=== PATIENT | female | born 1935 | race Caucasian/White ===

== ENCOUNTER 2016-11-04 12:55 | Inpatient (IN) | payer MEDICARE ==
--- NOTE | 2016-11-04 14:50 | RAD ---
INDICATION: Leg weakness and heavy feeling. COMPARISON: There are no prior studies available for comparison. TECHNIQUE: Contiguous axial sections of the brain were obtained from the skull base to the vertex without contrast. FINDINGS: The ventricles, cisterns and sulci are enlarged consistent with age-related atrophy. There are small areas of decreased density in the subcortical and periventricular white matter suggestive of mild chronic small vessel ischemic changes. There is no evidence for hemorrhage. There is an air-fluid level within the left maxillary sinus suggestive of sinusitis. There is mild mucosal thickening within the ethmoid air cells. The visualized portion of the paranasal sinuses and mastoid air cells otherwise appear clear. IMPRESSION: 1. NO EVIDENCE FOR GROSS ACUTE INFARCT, MASS EFFECT OR HEMORRHAGE. 2. AIR-FLUID LEVEL WITHIN THE LEFT MAXILLARY SINUS SUGGESTIVE OF SINUSITIS.
[2016-11-04] MEDS ORDERED: NS 0.9% 1000 ML* 1,000 ML IV ONE (15:09)
[2016-11-04 15:27] LABS: Hematocrit 33 % (35-47); Hemoglobin 10.3 g/dl (12.0-16.0); Mean Corpuscular HGB Conc 32 g/dl (31-36); Mean Corpuscular Hemoglobin 22 pg (27-31); Mean Corpuscular Volume 69 fL (80-97); Mean Platelet Volume 7 um3 (7.4-10.4); Red Blood Count 4.72 10^6/ul (4.0-5.4); Red Cell Distribution Width 17 % (10.5-15); White Blood Count 6.7 10^3/ul (3.5-10.8)
[2016-11-04 15:33] LABS: Comments Flag Yes
[2016-11-04 15:35] LABS: Add Diff/Slide Review? Slide Review Added
[2016-11-04 15:50] LABS: Albumin 2.9 g/dL (3.2-5.2); BUN/Creatinine Ratio 22.7 (8-20); Calcium 8.6 mg/dL (8.6-10.3); EGFR African American 176.9 (>60); EGFR Non-African American 137.6 (>60); Globulin 4.3 g/dL (2-4); Magnesium 1.8 mg/dL (1.9-2.7); Total Bilirubin 0.2 mg/dL (0.2-1.0); Total Protein 7.2 g/dL (6.4-8.9)
[2016-11-04 15:56] LABS: Potassium 3.8 mmol/L (3.5-5.0); Troponin I 0.04 ng/mL (<0.04)
[2016-11-04] MEDS ORDERED: Magnesium Sulfate 2 GM IV* 2 GM/50 ML BAG IVPB ONE (16:08)
[2016-11-04 16:29] LABS: TSH (Thyroid Stimulating Horm) 1.63 mcIU/mL (0.34-5.60)
--- NOTE | 2016-11-04 17:30 | ED ---
I, Oh,Giacomo, scribed for Za Clark MD on 11/04/16 at 1508 . Neurological HPI - HPI Summary HPI Summary: This 81 y/o female presents to ED for bilat leg weakness and trouble ambulating. pt was seen at urgent care for bilat edema recently, and expresses concerns over BLE edema today. She also c/o bilat feet pain that makes ambulating difficult for her. She denies any fall. Positive cough that is controlled with cough drops. Pt does not have any primary care doctor, and is currently denying any PMHx. Pt lives at [facility]. - History of Current Complaint Chief Complaint: EDWeakness Stated Complaint: WEEKNESS Time Seen by Provider: 11/04/16 14:17 Hx Obtained From: Patient Onset/Duration: Sudden Onset Timing: Constant Pain Intensity: 0 Pain Scale Used: 0-10 Numeric Aggravating: Nothing Alleviating: Nothing - Allergy/Home Medications Allergies/Adverse Reactions: Allergies Allergy/AdvReac Type Severity Reaction Status Date / Time No Known Allergies Allergy Verified 11/04/16 14:40 PMH/Surg Hx/FS Hx/Imm Hx Previously Healthy: Yes - Pt denies any PMhx Infectious Disease History: No Infectious Disease History: Denies: Traveled Outside the [place] in Last 30 Days - Family History Known Family History: Negative: Cardiac Disease, Hypertension, Diabetes - Social History Alcohol Use: None Substance Use Type: Reports: None Smoking Status (MU): Light Every Day Tobacco Smoker Review of Systems Negative: Fever Positive: Edema - BLE edema, Other - bilat feet pain Positive: Weakness - BLE weakness All Other Systems Reviewed And Are Negative: Yes Physical Exam Triage Information Reviewed: Yes Vital Signs On Initial Exam: Initial Vitals Temp Pulse Resp BP Pulse Ox 98.9 F 94 16 139/50 94 11/04/16 13:00 11/04/16 13:00 11/04/16 13:00 11/04/16 13:00 11/04/16 13:00 Vital Signs Reviewed: Yes Appearance: Positive: Well-Appearing, No Pain Distress Skin: Positive: Warm, Skin Color Reflects Adequate Perfusion, Dry Head/Face: Positive: Normal Head/Face Inspection Eyes: Positive: EOMI, APRIL Neck: Positive: Supple, Nontender Respiratory/Lung Sounds: Positive: Clear to Auscultation, Breath Sounds Present Cardiovascular: Positive: RRR, Pulses are Symmetrical in both Upper and Lower Extremities. Negative: Murmur, Rub, Leg Edema Left, Leg Edema Right, Other - gallops Musculoskeletal: Positive: Strength/ROM Intact - strength BLE intact Neurological: Positive: Sensory/Motor Intact, Alert, Oriented to Person Place, Time, CN Intact II-III. Negative: Focal Deficit @ - bilat lower extremities strength intact Psychiatric: Positive: Affect/Mood Appropriate AVPU Assessment: Alert - [place] Coma Scale Coma Scale Total: 15 Diagnostics - Vital Signs Vital Signs Temp Pulse Resp BP Pulse Ox 11/04/16 13:00 98.9 F 94 16 139/50 94 - Laboratory Lab Results: Lab Results 11/04/16 11/04/16 11/04/16 Range/Units 15:15 15:15 15:15 WBC 6.7 (3.5-10.8) 10^3/ul RBC 4.72 (4.0-5.4) 10^6/ul Hgb 10.3 L (12.0-16.0) g/dl Hct 33 L (35-47) % MCV 69 L (80-97) fL MCH 22 L (27-31) pg MCHC 32 (31-36) g/dl RDW 17 H (10.5-15) % Plt Count 571 H (150-450) 10^3/ul MPV 7 L (7.4-10.4) um3 Neut % (Auto) 76.8 (38-83) % Lymph % (Auto) 11.8 L (25-47) % [place] % (Auto) 10.9 H (1-9) % Eos % (Auto) 0.2 (0-6) % Baso % (Auto) 0.3 (0-2) % Absolute Neuts (auto) 5.2 (1.5-7.7) 10^3/ul Absolute Lymphs (auto) 0.8 L (1.0-4.8) 10^3/ul Absolute Monos (auto) 0.7 (0-0.8) 10^3/ul Absolute Eos (auto) 0 (0-0.6) 10^3/ul Absolute Basos (auto) 0 (0-0.2) 10^3/ul Absolute Nucleated RBC 0 10^3/ul Nucleated RBC % 0.1 Sodium 134 (133-145) mmol/L Potassium 3.8 (3.5-5.0) mmol/L Chloride 95 L (101-111) mmol/L Carbon Dioxide 32 (22-32) mmol/L Anion Gap 7 (2-11) mmol/L BUN 10 (6-24) mg/dL Creatinine 0.44 L (0.51-0.95) mg/dL Est GFR ( Amer) 176.9 (>60) Est GFR (Non-Af Amer) 137.6 (>60) BUN/Creatinine Ratio 22.7 H (8-20) Glucose 100 (70-100) mg/dL Lactic Acid 1.1 (0.5-2.0) mmol/L Calcium 8.6 (8.6-10.3) mg/dL Magnesium 1.8 L (1.9-2.7) mg/dL Total Bilirubin 0.20 (0.2-1.0) mg/dL AST 17 (13-39) U/L ALT 6 L (7-52) U/L Alkaline Phosphatase 116 H (34-104) U/L Troponin I 0.04 H* (<0.04) ng/mL Total Protein 7.2 (6.4-8.9) g/dL Albumin 2.9 L (3.2-5.2) g/dL Globulin 4.3 H (2-4) g/dL Albumin/Globulin Ratio 0.7 L (1-3) TSH 1.63 (0.34-5.60) mcIU/mL Result Diagrams: 11/04/16 15:15 11/04/16 15:15 Lab Statement: Any lab studies that have been ordered have been reviewed, and results considered in the medical decision making process. - CT Brain CT Interpretation: No Acute Changes - 1. NO EVIDENCE FOR GROSS ACUTE INFARCT, MASS EFFECT OR HEMORRHAGE. 2. AIR-FLUID LEVEL WITHIN THE LEFT MAXILLARY SINUS SUGGESTIVE OF SINUSITIS. CT Interpretation Completed By: Radiologist - EKG 1 Cardiac Rate: NL EKG Rhythm: Sinus Rhythm EKG Interpretation: LVH EKG Comparison: No Significant Change - 09/02/2006 Re-Evaluation - Re-Evaluation First Eval Re-Evaluation Time: 16:20 Comment: MD in room to discuss plan of care involving possible admission for further cardiac workup. Course/Dx - Course Course Of Treatment: 81 yo female with complaint of weakness and heavy legs, her neuro exam is normal. Pt has good range of motion in her lower extremities , her trop is in the indeterminate range and pt will be brought in as an obv. The case has been discussed with Dr. Walters. Of note a urine is pending - Diagnoses Provider Diagnoses: Weakness - Physician Notifications Discussed Care of Patient With: Dr. Walters (Hospitalist) at 1618 PM Discharge - Discharge Plan Condition: Stable Disposition: ADMITTED TO [facility] The documentation as recorded by the Prabhjot rivers Soohyun accurately reflects the service I personally performed and the decisions made by me, Za Clark MD.
[2016-11-04 18:19] LABS: Urine Bacteria Absent (Absent); Urine Bilirubin Negative (Negative); Urine Glucose Negative (Negative); Urine Nitrite Negative (Negative)
[2016-11-04] MEDS: Heparin VIAL(*) 5000 UNITS/ML VIAL (FIVE THOUSAND) SUBCUT SCH (21:44)
[2016-11-04] MEDS: Ondansetron INJ* 2 MG/ML VIAL IV PRN (21:47)
--- NOTE | 2016-11-04 23:50 | HP ---
HISTORY AND PHYSICAL: DATE OF ADMISSION: 11/04/16 PRIMARY CARE PROVIDER: None. ATTENDING PHYSICIAN WHILE IN THE HOSPITAL: Lizzie Walters DO* (report dictated by Zaida Palomino NP) CHIEF COMPLAINT: Her legs feel heavy. HISTORY OF PRESENT ILLNESS: Ms. Oliver is an 81-year-old female patient who does not really see a physician. She is a smoker. Her only history that she is able to give me is that she has had a history of pneumonia. She specifically denied any history of hypertension, hyperlipidemia, or diabetes. No cancer that she is aware of and denies having any history of stroke or heart attack. She comes in today stating that over the last couple of weeks, her legs have felt heavy. She has been feeling weak, progressively worsening, more and more weak over the last couple of weeks. She has had tingling and funny feelings in bilateral lower extremities. Went to Urgent Care last week and they diagnosed her with edema. She was discharged from there, but she came back today because she has been having difficulty with this weakness and has feeling like her legs feel heavy. She states that she has not had any fevers or chills. She has been incontinent of urine, but this is not new for her. She denied having any back pain. There has been no chest pain. No shortness of breath. No vomiting. No diarrhea. No abdominal pain. No cough. No fevers. She said otherwise she just feels like her legs are weak. She came to the ED because of the weakness, there was concern and we were asked to evaluate for admission. She denies having again any back pain or any pain shooting down her legs. She was evaluated in the ED because of the weakness and the fact that there was concern for her safety at home and the fact that she was having difficulty with ambulation due to the weakness. We were asked to evaluate for admission. PAST MEDICAL HISTORY: Significant for she has had pneumonia in the past. PAST SURGICAL HISTORY: She has had teeth extractions. HOME MEDICATIONS: Include aspirin 81 mg daily. ALLERGIES TO MEDICATIONS: Include no known drug allergies. FAMILY HISTORY: Reviewed and noncontributory. Says there was no history of MIs , cancers, or strokes in her parents. SOCIAL HISTORY: She is a smoker. She smokes about half a pack a day. She has been smoking for about 50 years. She does not drink alcohol. She lives alone. Surrogate decision maker is not appointed. She does have 1 child. REVIEW OF SYSTEMS: There is no documented fever. She denied having any significant weight change. There was no double vision. There is no ear discharge. No rhinorrhea. No sore throat. No thyroid enlargement. Denied having any chest pain. There is no orthopnea. There is no nocturnal dyspnea. There is no abdominal pain. No nausea. No vomiting. No dysuria. No frequency. No seizure. No loss of consciousness. No pruritus. No skin ulcerations. Review of 14 systems completed, all others negative. PHYSICAL EXAMINATION GENERAL: At this time, Mr. Oliver is an 81-year-old female patient. She appears to be cachectic. She does not appear to be in any acute distress. She is sitting in the ER stretcher. VITAL SIGNS: Reveal a blood pressure of 149/57, pulse 89, respirations 20, O2 sat 95%, and temperature 99.9. HEENT: Head is atraumatic and normocephalic. Eyes: EOMs are intact. Sclerae were anicteric and not pale. NECK: Supple. Throat: Oral mucosa appears to be moist. No oropharyngeal erythema. LUNGS: Clear to auscultation bilaterally. No wheezes, rales, or rhonchi. HEART: Sounds S1, S2. Regular rate and rhythm. No murmurs, rubs, or gallops. ABDOMEN: Soft, flat, and nontender. Bowel sounds present. EXTREMITIES: Pulses were 2+ throughout. She is actually able to move all 4 extremities. She had 5/5 strength in the lower extremities on exam. NEUROLOGIC: She is awake, alert, and oriented x3. Speech clear. Tongue midline. Associate Genetics Professor are equal. There were no gross focal deficits. SKIN: Intact. DIAGNOSTIC STUDIES/LAB DATA: Labs today revealed WBC of 6.7, RBC of 4.77, hemoglobin of 10.3, hematocrit of 33, and platelet count of 571. The sodium was 134, potassium was 3.8, chloride 95, bicarb 32, BUN 10, creatinine of 0.44, glucose 100, lactic 1.1, calcium 8.6, and mag 1.8. Total bilirubin 0.2, AST 17 , ALT 6, and alk phos 116. Troponin 0.04. Albumin 2.9. She did have a brain CT obtained today, which revealed no evidence of gross acute infarct, mass effect, or hemorrhage and air fluid level within the left maxillary sinus suggestive of sinusitis. She had an EKG obtained today, which revealed normal sinus rhythm, rate of 96, and no ST elevations or T-wave inversions were noted. Old medical records were reviewed. ASSESSMENT AND PLAN: Ms. Oliver is an 81-year-old female patient coming in to the ER today with complaints of weakness. On evaluation, found to have an indeterminate troponin. In addition to this unclear etiology for the weakness, we were asked to evaluate for admission. She will be admitted under observation status for: 1. Weakness: Etiology is unclear. At this point, I am going to go ahead and get urine. We will check a flu swab as well to make sure there is any underlying occult infection. I will order PT evaluation on the patient and we will continue to follow. Question as to weakness and she was describing more of a tingling in her legs, but this is related to neuropathy. Certainly, if her acute workup is negative, we can get a primary for her to follow in the outpatient setting. 2. Indeterminate troponin: She is not having any cardiac symptoms whatsoever. EKG appears to be stable. I will cycle her troponins. If they are elevated up , we will get an echo and also get a Cardiology consult and I will repeat the EKG in the morning. 3. Code status: She wished to be a DNR. 4. DVT prophylaxis: She is high risk. She will be placed on heparin subcu. 5. Fluids, electrolytes, and nutrition: She can have a regular diet. TIME SPENT: Time spent on the admission was 60 minutes; greater than half the time was spent [id number] with the patient obtaining my history and physical, the other half time is spent going over the plan of care with the patient and implementing plan of care. I discussed the plan of care with my attending, Dr. Walters. [place] [id number]/[facility] #: [id number] JOANNA
[2016-11-05] MEDS: Oseltamivir CAP* 75 MG PO SCH ×3 (00:11→20:37)
[2016-11-05] MEDS: Acetaminophen TAB* 325 MG PO PRN ×2 (00:19→09:13)
[2016-11-05] MEDS: Heparin VIAL(*) 5000 UNITS/ML VIAL (FIVE THOUSAND) SUBCUT SCH ×3 (06:01→20:37)
[2016-11-05 07:17] LABS: Hematocrit 29 % (35-47); Hemoglobin 9.5 g/dl (12.0-16.0); Mean Corpuscular HGB Conc 32 g/dl (31-36); Mean Corpuscular Hemoglobin 22 pg (27-31); Mean Corpuscular Volume 68 fL (80-97); Mean Platelet Volume 7 um3 (7.4-10.4); Red Blood Count 4.32 10^6/ul (4.0-5.4); Red Cell Distribution Width 17 % (10.5-15); White Blood Count 5.2 10^3/ul (3.5-10.8)
[2016-11-05 07:22] LABS: Add Diff/Slide Review? Slide Review Added; Comments Flag Yes
[2016-11-05 07:34] LABS: BUN/Creatinine Ratio 16.7 (8-20); Calcium 8.2 mg/dL (8.6-10.3); EGFR African American 123.7 (>60); EGFR Non-African American 96.2 (>60); Potassium 3.5 mmol/L (3.5-5.0)
[2016-11-05 08:20] LABS: Hypochromasia 2+; Microcytosis 3+
[2016-11-05 08:23] LABS: Troponin I 0.05 ng/mL (<0.04)
[2016-11-05] MEDS: Aspirin EC Low Dose* 81 MG TAB.EC PO SCH (09:13)
[2016-11-05] MEDS: Ondansetron INJ* 2 MG/ML VIAL IV PRN ×2 (09:36→17:13)
[2016-11-05] MEDS ORDERED: Al Hydrox/Mg Hydrox/Simet LIQ* 30 ML UDC ONE (13:57)
[2016-11-05] MEDS ORDERED: Al Hydrox/Mg Hydrox/Simet LIQ* 30 ML UDC PO ONE (14:00)
[2016-11-05] MEDS: Morphine INJ* 2 MG/ML 1 ML SYRINGE IV PRN (20:38)
--- NOTE | 2016-11-05 22:47 | PN ---
Subjective Date of Service: 11/05/16 Interval History: Patient feeling weak still but somewhat better than yesterday. Objective Active Medications: Acetaminophen (Tylenol Tab*) 650 mg PO Q4H PRN PRN Reason: FEVER/PAIN Last Admin: 11/05/16 09:13 Dose: 650 mg Aspirin (Aspirin Ec Low Dose*) 81 mg PO DAILY [facility] Last Admin: 11/05/16 09:13 Dose: 81 mg Heparin Sodium (Porcine) (Heparin Vial(*)) 5,000 units SUBCUT Q8HR [facility] Last Admin: 11/05/16 20:37 Dose: 5,000 units Morphine Sulfate (Morphine Inj (Syringe)*) 2 mg IV Q4H PRN PRN Reason: PAIN - MILD Last Admin: 11/05/16 20:38 Dose: 2 mg Ondansetron HCl (Zofran Inj*) 4 mg IV Q6H PRN PRN Reason: NAUSEA Last Admin: 11/05/16 17:13 Dose: 4 mg Oseltamivir Phosphate (Tamiflu Cap*) 75 mg PO BID [facility] Stop: 11/09/16 09:01 Last Admin: 11/05/16 20:37 Dose: 75 mg Vital Signs 11/05/16 11/05/16 11/05/16 19:54 20:00 20:38 Temperature 99.7 F Pulse Rate 76 Respiratory 18 18 Rate Blood Pressure 151/55 (mmHg) O2 Sat by Pulse 91 Oximetry 11/05/16 21:38 Temperature Pulse Rate Respiratory 18 Rate Blood Pressure (mmHg) O2 Sat by Pulse Oximetry Oxygen Devices in Use Now: None Appearance: Elderly woman lying in bed in [facility] Eyes: No Scleral Icterus Ears/Nose/Mouth/Throat: Clear Oropharnyx Neck: No Thyroid Enlargement, Masses Respiratory: Clear to Auscultation Cardiovascular: NL Sounds; No Murmurs; No JVD Abdominal: NL Sounds; No Tenderness; No Distention, No Hepatosplenomegaly Lymphatic: No Cervical Adenopathy Extremities: No Edema Skin: No Rash or Ulcers Neurological: Alert and Oriented x 3 Result Diagrams: 11/05/16 07:02 11/05/16 07:02 Additional Lab and Data: Lab Results 11/04/16 11/04/16 11/04/16 Range/Units 15:15 15:15 15:15 WBC 6.7 (3.5-10.8) 10^3/ul RBC 4.72 (4.0-5.4) 10^6/ul Hgb 10.3 L (12.0-16.0) g/dl Hct 33 L (35-47) % MCV 69 L (80-97) fL MCH 22 L (27-31) pg MCHC 32 (31-36) g/dl RDW 17 H (10.5-15) % Plt Count 571 H (150-450) 10^3/ul MPV 7 L (7.4-10.4) um3 Neut % (Auto) 76.8 (38-83) % Lymph % (Auto) 11.8 L (25-47) % [place] % (Auto) 10.9 H (1-9) % Eos % (Auto) 0.2 (0-6) % Baso % (Auto) 0.3 (0-2) % Absolute Neuts (auto) 5.2 (1.5-7.7) 10^3/ul Absolute Lymphs (auto) 0.8 L (1.0-4.8) 10^3/ul Absolute Monos (auto) 0.7 (0-0.8) 10^3/ul Absolute Eos (auto) 0 (0-0.6) 10^3/ul Absolute Basos (auto) 0 (0-0.2) 10^3/ul Absolute Nucleated RBC 0 10^3/ul Nucleated RBC % 0.1 Sodium 134 (133-145) mmol/L Potassium 3.8 (3.5-5.0) mmol/L Chloride 95 L (101-111) mmol/L Carbon Dioxide 32 (22-32) mmol/L Anion Gap 7 (2-11) mmol/L BUN 10 (6-24) mg/dL Creatinine 0.44 L (0.51-0.95) mg/dL Est GFR ( Amer) 176.9 (>60) Est GFR (Non-Af Amer) 137.6 (>60) BUN/Creatinine Ratio 22.7 H (8-20) Glucose 100 (70-100) mg/dL Lactic Acid 1.1 (0.5-2.0) mmol/L Calcium 8.6 (8.6-10.3) mg/dL Magnesium 1.8 L (1.9-2.7) mg/dL Total Bilirubin 0.20 (0.2-1.0) mg/dL AST 17 (13-39) U/L ALT 6 L (7-52) U/L Alkaline Phosphatase 116 H (34-104) U/L Troponin I 0.04 H* (<0.04) ng/mL Total Protein 7.2 (6.4-8.9) g/dL Albumin 2.9 L (3.2-5.2) g/dL Globulin 4.3 H (2-4) g/dL Albumin/Globulin Ratio 0.7 L (1-3) TSH 1.63 (0.34-5.60) mcIU/mL Assess/Plan/Problems-Billing Assessment: 81 year old woman admitted with weakness and found to have Influenza B. - Patient Problems (1) Influenza B Current Visit: Yes Status: Acute Code(s): J10.1 - FLU DUE TO OTH IDENT INFLUENZA VIRUS W OTH RESP MANIFEST SNOMED Code(s): 60370590 Comment: Likely source of her weakness. Continue Tamiflu. Encourage ambulation. (2) Troponin level elevated Current Visit: Yes Status: Acute Code(s): R74.8 - ABNORMAL LEVELS OF OTHER SERUM ENZYMES SNOMED Code(s): 905592004 Comment: No significant change. Unlikely of any significance. (3) DVT prophylaxis Current Visit: Yes Status: Acute Code(s): LRB3916 - SNOMED Code(s): 915064661 Comment: heparin sub q (4) Full code status Current Visit: Yes Status: Acute Code(s): Z78.9 - OTHER SPECIFIED HEALTH STATUS SNOMED Code(s): 312811542
[2016-11-06] MEDS: Morphine INJ* 2 MG/ML 1 ML SYRINGE IV PRN (02:52)
[2016-11-06] MEDS ORDERED: Potassium Chlor TAB* 20 MEQ TAB.ER PO ONE (03:30)
[2016-11-06] MEDS: Acetaminophen TAB* 325 MG PO PRN ×3 (03:39→23:29)
[2016-11-06] MEDS ORDERED: Magnesium Sulfate 2 GM IV* 2 GM/50 ML BAG IVPB ONE (04:00)
[2016-11-06] MEDS: Heparin VIAL(*) 5000 UNITS/ML VIAL (FIVE THOUSAND) SUBCUT SCH ×3 (06:05→23:29)
[2016-11-06] MEDS: Ondansetron INJ* 2 MG/ML VIAL IV PRN ×2 (06:52→12:03)
[2016-11-06 07:38] LABS: BUN/Creatinine Ratio 33.3 (8-20); Calcium 8.3 mg/dL (8.6-10.3); EGFR African American 203.4 (>60); EGFR Non-African American 158.1 (>60); Magnesium 2.5 mg/dL (1.9-2.7); Potassium 3.9 mmol/L (3.5-5.0)
[2016-11-06] MEDS: Aspirin EC Low Dose* 81 MG TAB.EC PO SCH (10:53)
[2016-11-06] MEDS: Oseltamivir CAP* 75 MG PO SCH ×2 (10:53→19:46)
--- NOTE | 2016-11-06 11:23 | RAD ---
HISTORY: Weakness COMPARISONS: September 16, 2006 VIEWS:1: Single frontal portable view of the chest at 11:00 AM FINDINGS: LINES AND TUBES: None. CARDIOMEDIASTINAL SILHOUETTE: The cardiomediastinal silhouette is normal for portable technique. PLEURA: There is persistent right apical pleural thickening, stable LUNG PARENCHYMA: There is hyper inflation with diffuse coarse reticular pattern of opacification. ABDOMEN: The upper abdomen is clear. There is no subphrenic gas. 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 CHRONIC APPEARING INTERSTITIAL OPACIFICATION.
--- NOTE | 2016-11-06 11:39 | ECHO ---
Patient: BLANCA MILLS I [facility] Rec#: [id number] : 1935 Date: 11/06/2016 Age: 81y Height: 167.64 cm / 66.0 in Weight: 45.81 kg / 101.0 lbs Sex: F BSA: 1.5 Room#: 447 Admit Date#: 11/05/2016 Type: Inpatient Referring: Yazan Kulkarni MD Reading: Beatriz Gray MD Branch Account Executive: Uma Fernández,RDCS,RDMS CC: Vince Fiore MD Transthoracic Echocardiogram Indication: Murmur BP: 148/42 HR: 62 Rhythm: NSR Indications Cardiac Murmurs Findings History: Smoker, pneumonia Technical Comments: The study quality is fair. The study is technically limited due to poor parasternal windows. Left Ventricle: The left ventricular chamber size is normal. Mild to moderate concentric left ventricular hypertrophy is observed. Global left ventricular wall motion and contractility are within normal limits. The estimated ejection fraction is 55-60%. Abnormal left ventricular diastolic filling is observed, consistent with impaired relaxation. Left Atrium: The left atrium is moderately dilated. Right Ventricle: The right ventricular chamber size and systolic function are within normal limits. Right Atrium: The right atrial cavity size is normal. Aortic Valve: The aortic valve is trileaflet. The aortic valve leaflets are mildly thickened. There is mild aortic regurgitation. There is mild aortic stenosis. The aortic valve area, by peak velocities, is calculated at 1.6 cm2. Mitral Valve: There is mitral annular calcification. The mitral valve leaflets are mildly thickened. There is trace to mild mitral regurgitation. There is mild mitral stenosis. Tricuspid Valve: The tricuspid valve leaflets are normal. There is trace tricuspid regurgitation. Unable to estimate the right ventricular systolic pressure. Pulmonic Valve: The pulmonic valve structure is not well visualized. Pericardium: There is no significant pericardial effusion. Aorta: The ascending aorta is not well visualized. There is no dilatation of the aortic arch. The aortic root is normal in size. Pulmonary Artery: The main pulmonary artery is not well visualized. Venous: The inferior vena cava appears normal in size. There is an approximate 50% respiratory change in the inferior vena cava dimension. Conclusions Mild to moderate concentric left ventricular hypertrophy with normal wall motion and contractility. The estimated ejection fraction is 55-60%. Abnormal left ventricular diastolic filling is observed, consistent with impaired relaxation. The right ventricular chamber size and systolic function are within normal limits. There is mild aortic regurgitation. There is mild aortic stenosis: mean gradient 9 mmHg, JOSE LUIS 1.7 cm2. The mitral valve leaflets are mildly thickened. There is trace to mild mitral regurgitation. There is mild mitral stenosis. Unable to estimate the right ventricular systolic pressure. No prior echo to compare. Measurements Name Value Normal Range RVDdMajor (2D) 2 cm (2.2 - 4.4) RAd ISD 4CH 4.8 cm (3.4 - 4.9) RA (A4C)W 3.6 cm (2.9 - 4.6) IVSd (2D) 1.4 cm (0.6 - 1) LVPWd (2D) 1.3 cm (0.6 - 1) LVIDd (2D) 3.7 cm (3.6 - 5.4) LVIDs (2D) 2.4 cm - LV FS (2D) 35 % (25 - 45) Aortic Annulus 2 cm (1.4 - 2.6) Ao root diameter (2D) 3.3 cm (2.1 - 3.5) Aortic arch 2.6 cm (1.8 - 3.4) LA dimension (AP) 2D 4.2 cm (2.3 - 3.8) LAd ISD 4CH 5.1 cm (2.9 - 5.3) LA ISD 4CH W 4.9 cm (2.5 - 4.5) Name Value Normal Range LA ESV SP 4CH (A/L) 72.72 ml - LA ESV SP 2CH (A/L) 62.66 ml - LA ESV BP (A/L) 69.72 ml - LA ESV BP (A/L) index 46.5 ml/m2 - LA ESV SP 4CH (MOD) 66.94 ml - LA ESV SP 2CH (MOD) 58.76 ml - Name Value Normal Range MV E-wave Vmax 1 m/sec - MV deceleration time 264 msec - MV A-wave Vmax 1.3 m/sec - MV E:A ratio 0.8 ratio - P. vein S-wave Vmax 0.8 m/sec - P. vein D-wave Vmax 0.5 m/sec - P. vein A-wave duration 118 msec - LV septal e' Vmax 0.05 m/sec - LV lateral e' Vmax 0.07 m/sec - LV E:e' septal ratio 20 ratio - LV E:e' lateral ratio 14 ratio - Name Value Normal Range AV Vmax 2 m/sec - AV VTI 42.4 cm - AV peak gradient 16 mmHg - AV mean gradient 8.7 mmHg - LVOT diameter 2 cm - LVOT Vmax 1 m/sec - LVOT VTI 20.8 cm - LVOT peak gradient 4 mmHg - LVOT mean gradient 2 mmHg - DOI (VTI) 0.5 ratio - JOSE LUIS (continuity Vmax) 1.6 cm2 - JOSE LUIS (continuity VTI) 1.5 cm2 - AR PHT 462 msec - AR peak gradient 56.94 mmHg - ARVIND Vmax 0.6 m/sec - Name Value Normal Range MV Vmax 1.4 m/sec - MV VTI 43.3 cm - MV peak gradient 8 mmHg - MV mean gradient 2.8 mmHg - MV PHT 90 msec - MVA (PHT) 2.4 cm2 - MVA (continuity VTI) 1.4 cm2 - Name Value Normal Range TR Vmax 2.8 m/sec - TR peak gradient 31 mmHg - RAP 3 mmHg - RVSP 34 mmHg - IVC diameter 2 cm -
[2016-11-06] MEDS ORDERED: Ondansetron INJ* 2 MG/ML VIAL IV PRN (11:49)
[2016-11-06] MEDS: PROCHLORPERAZINE INJ 5 MG/ML 2 ML VIAL IV PRN ×2 (13:57→19:46)
--- NOTE | 2016-11-06 18:36 | PN ---
Subjective Date of Service: 11/06/16 Interval History: Patient feeling some nausea now. No other complaints. Objective Active Medications: Acetaminophen (Tylenol Tab*) 650 mg PO Q4H PRN PRN Reason: FEVER/PAIN Last Admin: 11/06/16 12:04 Dose: 650 mg Aspirin (Aspirin Ec Low Dose*) 81 mg PO DAILY [facility] Last Admin: 11/06/16 10:53 Dose: Not Given Heparin Sodium (Porcine) (Heparin Vial(*)) 5,000 units SUBCUT Q8HR [facility] Last Admin: 11/06/16 13:56 Dose: 5,000 units Morphine Sulfate (Morphine Inj (Syringe)*) 2 mg IV Q4H PRN PRN Reason: PAIN - MILD Last Admin: 11/06/16 02:52 Dose: 2 mg Ondansetron HCl (Zofran Inj*) 4 mg IV Q4H PRN PRN Reason: NAUSEA Oseltamivir Phosphate (Tamiflu Cap*) 75 mg PO BID [facility] Stop: 11/09/16 09:01 Last Admin: 11/06/16 10:53 Dose: Not Given Prochlorperazine Edisylate (Compazine Inj*) 5 mg IV Q6H PRN PRN Reason: NAUSEA/VOMITING Last Admin: 11/06/16 13:57 Dose: 5 mg Vital Signs 11/05/16 11/05/16 11/05/16 19:54 20:00 20:38 Temperature 99.7 F Pulse Rate 76 Respiratory 18 18 Rate Blood Pressure 151/55 (mmHg) O2 Sat by Pulse 91 Oximetry 11/05/16 11/05/16 11/06/16 21:38 23:37 00:40 Temperature 99.4 F Pulse Rate 77 Respiratory 18 18 Rate Blood Pressure 148/47 (mmHg) O2 Sat by Pulse 88 88 Oximetry 11/06/16 11/06/16 11/06/16 02:52 03:36 03:52 Temperature 100.1 F Pulse Rate 82 Respiratory 20 18 20 Rate Blood Pressure 148/42 (mmHg) O2 Sat by Pulse 90 Oximetry 11/06/16 11/06/16 11/06/16 06:50 07:30 09:50 Temperature 98.5 F Pulse Rate 68 Respiratory 24 24 Rate Blood Pressure 121/46 (mmHg) O2 Sat by Pulse 84 96 Oximetry 11/06/16 11/06/16 11/06/16 11:30 13:23 15:19 Temperature 98.5 F 99.3 F 98.1 F Pulse Rate 67 63 64 Respiratory 26 22 22 Rate Blood Pressure 136/47 99/28 120/40 (mmHg) O2 Sat by Pulse 97 96 96 Oximetry 11/06/16 16:46 Temperature Pulse Rate Respiratory Rate Blood Pressure (mmHg) O2 Sat by Pulse 97 Oximetry Oxygen Devices in Use Now: Nasal Cannula - 3 l Appearance: Elderly woman lying in bed in NAD Ears/Nose/Mouth/Throat: Mucous Membranes Moist Neck: No Thyroid Enlargement, Masses Respiratory: Clear to Auscultation Cardiovascular: - - S1S2 buck, II/ SM Abdominal: NL Sounds; No Tenderness; No Distention, No Hepatosplenomegaly Lymphatic: No Cervical Adenopathy Extremities: No Clubbing, Cyanosis Skin: No Rash or Ulcers Neurological: Alert and Oriented x 3 Result Diagrams: 11/05/16 07:02 11/06/16 06:47 Additional Lab and Data: Lab Results 11/04/16 11/04/16 11/04/16 Range/Units 15:15 15:15 15:15 WBC 6.7 (3.5-10.8) 10^3/ul RBC 4.72 (4.0-5.4) 10^6/ul Hgb 10.3 L (12.0-16.0) g/dl Hct 33 L (35-47) % MCV 69 L (80-97) fL MCH 22 L (27-31) pg MCHC 32 (31-36) g/dl RDW 17 H (10.5-15) % Plt Count 571 H (150-450) 10^3/ul MPV 7 L (7.4-10.4) um3 Neut % (Auto) 76.8 (38-83) % Lymph % (Auto) 11.8 L (25-47) % [place] % (Auto) 10.9 H (1-9) % Eos % (Auto) 0.2 (0-6) % Baso % (Auto) 0.3 (0-2) % Absolute Neuts (auto) 5.2 (1.5-7.7) 10^3/ul Absolute Lymphs (auto) 0.8 L (1.0-4.8) 10^3/ul Absolute Monos (auto) 0.7 (0-0.8) 10^3/ul Absolute Eos (auto) 0 (0-0.6) 10^3/ul Absolute Basos (auto) 0 (0-0.2) 10^3/ul Absolute Nucleated RBC 0 10^3/ul Nucleated RBC % 0.1 Sodium 134 (133-145) mmol/L Potassium 3.8 (3.5-5.0) mmol/L Chloride 95 L (101-111) mmol/L Carbon Dioxide 32 (22-32) mmol/L Anion Gap 7 (2-11) mmol/L BUN 10 (6-24) mg/dL Creatinine 0.44 L (0.51-0.95) mg/dL Est GFR ( Amer) 176.9 (>60) Est GFR (Non-Af Amer) 137.6 (>60) BUN/Creatinine Ratio 22.7 H (8-20) Glucose 100 (70-100) mg/dL Lactic Acid 1.1 (0.5-2.0) mmol/L Calcium 8.6 (8.6-10.3) mg/dL Magnesium 1.8 L (1.9-2.7) mg/dL Total Bilirubin 0.20 (0.2-1.0) mg/dL AST 17 (13-39) U/L ALT 6 L (7-52) U/L Alkaline Phosphatase 116 H (34-104) U/L Troponin I 0.04 H* (<0.04) ng/mL Total Protein 7.2 (6.4-8.9) g/dL Albumin 2.9 L (3.2-5.2) g/dL Globulin 4.3 H (2-4) g/dL Albumin/Globulin Ratio 0.7 L (1-3) TSH 1.63 (0.34-5.60) mcIU/mL Assess/Plan/Problems-Billing Assessment: 81 year old woman admitted with weakness and found to have Influenza B. - Patient Problems (1) Influenza B Current Visit: Yes Status: Acute Code(s): J10.1 - FLU DUE TO OTH IDENT INFLUENZA VIRUS W OTH RESP MANIFEST SNOMED Code(s): 75067655 Comment: Still weak from flu. Continue Tamiflu and supportive care. (2) Troponin level elevated Current Visit: Yes Status: Acute Code(s): R74.8 - ABNORMAL LEVELS OF OTHER SERUM ENZYMES SNOMED Code(s): 693851799 Comment: No significant change. Unlikely of any significance. (3) Nausea Current Visit: Yes Status: Acute Code(s): R11.0 - NAUSEA SNOMED Code(s): 540533103 Comment: Likely from either morphine or tamiflu. Tamiflu on hold until patient tolerates po. DC morphine. Zofran and compazine prn (4) DVT prophylaxis Current Visit: Yes Status: Acute Code(s): VQI4191 - SNOMED Code(s): 323975229 Comment: heparin sub q (5) Full code status Current Visit: Yes Status: Acute Code(s): Z78.9 - OTHER SPECIFIED HEALTH STATUS SNOMED Code(s): 815408512
[2016-11-07] MEDS: Heparin VIAL(*) 5000 UNITS/ML VIAL (FIVE THOUSAND) SUBCUT SCH ×3 (05:16→23:17)
[2016-11-07] MEDS: PROCHLORPERAZINE INJ 5 MG/ML 2 ML VIAL IV PRN ×2 (05:39→15:25)
[2016-11-07] MEDS: Aspirin EC Low Dose* 81 MG TAB.EC PO SCH (09:04)
[2016-11-07] MEDS: Oseltamivir CAP* 75 MG PO SCH ×2 (09:04→20:42)
[2016-11-07] MEDS ORDERED: Iohexol 300* (CONTRAST) 10 ML SDV IV ONE (16:23)
--- NOTE | 2016-11-07 17:28 | PN ---
Subjective Date of Service: 11/07/16 Interval History: Patient c/o abdominal pain today. RLQ. Still with nausea. Objective Active Medications: Acetaminophen (Tylenol Tab*) 650 mg PO Q4H PRN PRN Reason: FEVER/PAIN Last Admin: 11/06/16 23:29 Dose: 650 mg Aspirin (Aspirin Ec Low Dose*) 81 mg PO DAILY [facility] Last Admin: 11/07/16 09:04 Dose: 81 mg Heparin Sodium (Porcine) (Heparin Vial(*)) 5,000 units SUBCUT Q8HR [facility] Last Admin: 11/07/16 13:07 Dose: 5,000 units Ondansetron HCl (Zofran Inj*) 4 mg IV Q4H PRN PRN Reason: NAUSEA Oseltamivir Phosphate (Tamiflu Cap*) 75 mg PO BID [facility] Stop: 11/09/16 09:01 Last Admin: 11/07/16 09:04 Dose: 75 mg Prochlorperazine Edisylate (Compazine Inj*) 5 mg IV Q6H PRN PRN Reason: NAUSEA/VOMITING Last Admin: 11/07/16 15:25 Dose: 5 mg Vital Signs 11/06/16 11/06/16 11/06/16 20:00 20:39 20:41 Temperature 99.7 F Pulse Rate 81 79 Respiratory 19 Rate Blood Pressure 148/43 (mmHg) O2 Sat by Pulse 90 91 Oximetry 11/06/16 11/07/16 11/07/16 23:33 00:00 04:14 Temperature 99.4 F 98.3 F Pulse Rate 89 46 Respiratory 20 18 Rate Blood Pressure 151/46 142/42 (mmHg) O2 Sat by Pulse 99 97 90 Oximetry 11/07/16 11/07/16 11/07/16 07:30 08:00 09:27 Temperature 99.9 F Pulse Rate 73 Respiratory 18 22 Rate Blood Pressure 123/43 (mmHg) O2 Sat by Pulse 94 96 Oximetry 11/07/16 13:27 Temperature 98.5 F Pulse Rate 69 Respiratory 20 Rate Blood Pressure 121/45 (mmHg) O2 Sat by Pulse 92 Oximetry Oxygen Devices in Use Now: Nasal Cannula - 3 l Appearance: Elderly woman lying in bed uncomfortable but in NAD Eyes: No Scleral Icterus Ears/Nose/Mouth/Throat: Mucous Membranes Moist Neck: No Thyroid Enlargement, Masses Respiratory: Clear to Auscultation Cardiovascular: - - S1S2 buck Abdominal: No Hepatosplenomegaly - Mildly tender RLQ Lymphatic: No Cervical Adenopathy Extremities: No Clubbing, Cyanosis Skin: No Rash or Ulcers Neurological: Alert and Oriented x 3 Result Diagrams: 11/05/16 07:02 11/06/16 06:47 Additional Lab and Data: Lab Results 11/04/16 11/04/16 11/04/16 Range/Units 15:15 15:15 15:15 WBC 6.7 (3.5-10.8) 10^3/ul RBC 4.72 (4.0-5.4) 10^6/ul Hgb 10.3 L (12.0-16.0) g/dl Hct 33 L (35-47) % MCV 69 L (80-97) fL MCH 22 L (27-31) pg MCHC 32 (31-36) g/dl RDW 17 H (10.5-15) % Plt Count 571 H (150-450) 10^3/ul MPV 7 L (7.4-10.4) um3 Neut % (Auto) 76.8 (38-83) % Lymph % (Auto) 11.8 L (25-47) % [place] % (Auto) 10.9 H (1-9) % Eos % (Auto) 0.2 (0-6) % Baso % (Auto) 0.3 (0-2) % Absolute Neuts (auto) 5.2 (1.5-7.7) 10^3/ul Absolute Lymphs (auto) 0.8 L (1.0-4.8) 10^3/ul Absolute Monos (auto) 0.7 (0-0.8) 10^3/ul Absolute Eos (auto) 0 (0-0.6) 10^3/ul Absolute Basos (auto) 0 (0-0.2) 10^3/ul Absolute Nucleated RBC 0 10^3/ul Nucleated RBC % 0.1 Sodium 134 (133-145) mmol/L Potassium 3.8 (3.5-5.0) mmol/L Chloride 95 L (101-111) mmol/L Carbon Dioxide 32 (22-32) mmol/L Anion Gap 7 (2-11) mmol/L BUN 10 (6-24) mg/dL Creatinine 0.44 L (0.51-0.95) mg/dL Est GFR ( Amer) 176.9 (>60) Est GFR (Non-Af Amer) 137.6 (>60) BUN/Creatinine Ratio 22.7 H (8-20) Glucose 100 (70-100) mg/dL Lactic Acid 1.1 (0.5-2.0) mmol/L Calcium 8.6 (8.6-10.3) mg/dL Magnesium 1.8 L (1.9-2.7) mg/dL Total Bilirubin 0.20 (0.2-1.0) mg/dL AST 17 (13-39) U/L ALT 6 L (7-52) U/L Alkaline Phosphatase 116 H (34-104) U/L Troponin I 0.04 H* (<0.04) ng/mL Total Protein 7.2 (6.4-8.9) g/dL Albumin 2.9 L (3.2-5.2) g/dL Globulin 4.3 H (2-4) g/dL Albumin/Globulin Ratio 0.7 L (1-3) TSH 1.63 (0.34-5.60) mcIU/mL Assess/Plan/Problems-Billing Assessment: 81 year old woman admitted with weakness and found to have Influenza B. - Patient Problems (1) Influenza B Current Visit: Yes Status: Acute Code(s): J10.1 - FLU DUE TO OTH IDENT INFLUENZA VIRUS W OTH RESP MANIFEST SNOMED Code(s): 73417135 Comment: Still weak presumably from the flu. Continue Tamiflu and supportive care. (2) Troponin level elevated Current Visit: Yes Status: Acute Code(s): R74.8 - ABNORMAL LEVELS OF OTHER SERUM ENZYMES SNOMED Code(s): 795367690 Comment: No significant change. Unlikely of any significance. (3) Nausea Current Visit: Yes Status: Acute Code(s): R11.0 - NAUSEA SNOMED Code(s): 685739210 Comment: Likely from either morphine or tamiflu. Tamiflu on hold until patient tolerates po. DC morphine. Zofran and compazine prn (4) Abdominal pain, RLQ Current Visit: Yes Status: Acute Comment: Slightly tender. Check CT scan. (5) DVT prophylaxis Current Visit: Yes Status: Acute Code(s): HGD1896 - SNOMED Code(s): 804089958 Comment: heparin sub q (6) Full code status Current Visit: Yes Status: Acute Code(s): Z78.9 - OTHER SPECIFIED HEALTH STATUS SNOMED Code(s): 201663984
--- NOTE | 2016-11-07 18:08 | RAD ---
CLINICAL HISTORY: Right-sided abdominal pain COMPARISON: CT of the chest dated September 04, 2006 TECHNIQUE: Contrast enhanced CT examination of the abdomen and pelvis from the lung bases through the initial tuberosities. The patient received 61 mL Omnipaque 300 intravenously prior to imaging.The patient received oral contrast as well prior to imaging. FINDINGS: VISUALIZED LUNG BASES: The visualized lungs exhibit diffuse centrilobular emphysematous changes. In addition, there is intralobular septal thickening and honeycombing along the dependent portion of the lungs, worse on the right than the left. ABDOMEN AND PELVIS: There is a moderate-sized hiatal hernia. The liver, spleen, pancreas and adrenal glands are grossly normal in appearance. The gallbladder is normal. The kidneys are normal in appearance without focal mass, calcification or signs of hydronephrosis. Neural contrast has progressed as far as the transverse colon. The small and large bowel are not distended. The patient's normal appendix is identified in the right lower quadrant (coronal image 41 of 86).. There is no gross retroperitoneal or mesenteric lymphadenopathy. The pelvic viscera is normal in appearance. The abdominal aorta is coarsely calcified and ectatic with similar findings seen as far as the bilateral common femoral arteries. Degenerative changes of the thoracic and lumbar spine includes levoconvex curvature of the upper lumbar spine, multilevel vacuum disc phenomenon, loss of intervertebral disc height and marginal osteophyte formation. There are no sinister bone lesions. IMPRESSION: 1. Moderate-sized hiatal hernia. 2. Honeycombing at the right lung base is consistent with interstitial lung disease on a background of centrilobular emphysema. 3. Extensive chronic and degenerative changes as described in the body the report, without acute CT findings that would account for right lower quadrant pain.
[2016-11-07] MEDS ORDERED: Al Hydrox/Mg Hydrox/Simet LIQ* 30 ML UDC PO PRN (18:16)
[2016-11-07] MEDS ORDERED: Calcium Carbonate CHEW TAB* 500 MG (TUMS) PO PRN (18:16)
[2016-11-07] MEDS: Acetaminophen TAB* 325 MG PO PRN (20:45)
[2016-11-08] MEDS: PROCHLORPERAZINE INJ 5 MG/ML 2 ML VIAL IV PRN (02:05)
[2016-11-08] MEDS: Heparin VIAL(*) 5000 UNITS/ML VIAL (FIVE THOUSAND) SUBCUT SCH ×2 (05:53→13:24)
[2016-11-08] MEDS: Oseltamivir CAP* 75 MG PO SCH (08:09)
[2016-11-08] MEDS: Aspirin EC Low Dose* 81 MG TAB.EC PO SCH (08:09)
--- NOTE | 2016-11-08 10:18 | PN ---
Subjective Date of Service: 11/08/16 Interval History: Patient seen this morning. Says she continues to have some abdominal pain, thinks its from coughing. Reports some green phlegm produced. Feels very weak. Little appetite. Not on O2 at home ([employer]) Family History: Unchanged from Admission Social History: Unchanged from Admission Past Medical History: Unchanged from Admission Objective Active Medications: Acetaminophen (Tylenol Tab*) 650 mg PO Q4H PRN PRN Reason: FEVER/PAIN Last Admin: 11/07/16 20:45 Dose: 650 mg Al Hydrox/Mg Hydrox/Simethicone (Maalox Plus*) 30 ml PO Q2H PRN PRN Reason: INDIGESTION Last Admin: 11/07/16 18:23 Dose: 30 ml Aspirin (Aspirin Ec Low Dose*) 81 mg PO DAILY [facility] Last Admin: 11/08/16 08:09 Dose: 81 mg Calcium Carbonate (Tums*) 500 mg PO Q4H PRN PRN Reason: INDIGESTION Heparin Sodium (Porcine) (Heparin Vial(*)) 5,000 units SUBCUT Q8HR [facility] Last Admin: 11/08/16 05:53 Dose: 5,000 units Ondansetron HCl (Zofran Inj*) 4 mg IV Q4H PRN PRN Reason: NAUSEA Last Admin: 11/07/16 23:45 Dose: 4 mg Oseltamivir Phosphate (Tamiflu Cap*) 75 mg PO BID [facility] Stop: 11/09/16 09:01 Last Admin: 11/08/16 08:09 Dose: 75 mg Prochlorperazine Edisylate (Compazine Inj*) 5 mg IV Q6H PRN PRN Reason: NAUSEA/VOMITING Last Admin: 11/08/16 02:05 Dose: 5 mg Vital Signs 11/07/16 11/07/16 11/07/16 13:27 19:50 19:54 Temperature 98.5 F 98.2 F Pulse Rate 69 70 Respiratory 20 26 20 Rate Blood Pressure 121/45 127/44 (mmHg) O2 Sat by Pulse 92 93 Oximetry 11/07/16 11/08/16 11/08/16 23:44 04:04 07:44 Temperature 97.3 F 97.9 F 98.1 F Pulse Rate 66 71 70 Respiratory 24 20 26 Rate Blood Pressure 133/48 141/45 125/46 (mmHg) O2 Sat by Pulse 93 90 94 Oximetry 11/08/16 08:00 Temperature Pulse Rate Respiratory 20 Rate Blood Pressure (mmHg) O2 Sat by Pulse Oximetry Oxygen Devices in Use Now: Nasal Cannula - 3L Appearance: Elderly, F, laying in bed in NAD Eyes: No Scleral Icterus Ears/Nose/Mouth/Throat: - - Dry MM Neck: NL Appearance and Movements; NL JVP Respiratory: Symmetrical Chest Expansion and Respiratory Effort, Clear to Auscultation Cardiovascular: NL Sounds; No Murmurs; No JVD, RRR Abdominal: - - Soft, non-distended, TTP in RLQ, no rebound/guarding Lymphatic: No Cervical Adenopathy Extremities: No Edema Skin: No Rash or Ulcers Neurological: Alert and Oriented x 3 Result Diagrams: 11/05/16 07:02 11/06/16 06:47 Assess/Plan/Problems-Billing Assessment: 81 year old woman admitted with weakness and found to have Influenza B. - Patient Problems (1) Influenza B Current Visit: Yes Comment: Still weak presumably from the flu. Hold Tamiflu for now ?contributing to nausea, continue supportive care. (2) Nausea Current Visit: Yes Comment: Tamiflu on hold, morphine stopped. Zofran and compazine prn (3) Abdominal pain, RLQ Current Visit: Yes Comment: CT scan unremarkable. May be from coughing as per patient. Monitor. (4) DVT prophylaxis Current Visit: Yes Comment: heparin sub q (5) Full code status Current Visit: Yes Status and Disposition: May need placement, case management assistant to assess
[2016-11-08] MEDS ORDERED: Senna TAB PO PRN (10:21)
[2016-11-08] MEDS: Acetaminophen TAB* 325 MG PO PRN (13:24)
--- NOTE | 2016-11-08 15:42 | DS ---
CC: Dr. Fiore DATE OF ADMISSION: 11/04/2016. DATE OF DISCHARGE: 11/08/2016. PRIMARY CARE PHYSICIAN: Dr. Fiore. 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 DISCHARGE MEDICATION REGIMEN: 1. Aspirin 81 mg by mouth daily. 2. Senna one tablet by mouth daily as needed for constipation. 3. Zofran 4 mg by mouth every 6 hours as needed for nausea. 4. Calcium Carbonate 500 mg by mouth every 4 hours as needed for indigestion. 5. Maalox 30 ml per mouth every 2 hours as needed for indigestion. 6. Tylenol 650 mg by mouth every 4 hours as needed for pain. 7. Albuterol inhaler one puff inhaled every 4 to 6 hours as needed for shortness of breath or wheez ing. STUDIES DONE DURING HOSPITALIZATION: 1. CT of the brain without contrast: Impression: No evidence for gross acute infarct, mass effect or hemorrhage. Air fluid level with the left maxillary sinus suggestive of sinusitis. 2. Chest x-ray: Impression: Stable appearing apical pleural thickening. Chronic appearing interst itial opacification. 3. Transthoracic echocardiogram: Conclusion: Mild to moderate concentric LVH. Estimated ejection fraction at 55 to 60 percent. Abnormal left ventricular diastolic filling is observed, consistent w ith impaired relaxation. Right ventricular chamber size and systolic function are within normal bella its. There is mild aortic regurgitation. There is mild aortic stenosis. The mitral valve leaflets are mildly thickened. There is trace to mild mitral regurgitation. There is mild mitral stenosis. 4. CT abdomen and pelvis with contrast: Impression: Moderate-sized hiatal hernia. Honeycombing a t the right lung base consistent with interstitial lung disease on a background of centrilobular emp hysema. Extensive chronic and degenerative changes as described in the body the report without acute CT findings. HISTORY OF PRESENT ILLNESS AND HOSPITAL SUMMARY: Please see the full history and physical by Ross helms NP for full details. Briefly, Ms. Oliver is an 81-year- old female who presented to the [facility] with some weakness which has been progressing. The patient tested positive for influenza B wh ich was felt to likely be the cause of her symptoms. She did not have any evidence of underlying in fection. She has a mild troponin elevation that was trended; however, she had no chest pain and no significant EKG changes. Echo was unremarkable. The patient had some abdominal pain during the hos pitalization. A CT scan was done which did not show any etiology for the pain, possibly due to musc le strain from coughing. The patient was evaluated by Physical Therapy and it was felt that she wou ld benefit from rehabilitation. [facility] to returning home. Total time spent on this discharge was 40 minutes. This is a summary of the hospitalization, please see the full medical record for further details. [id number]/[facility] #: [id number]
[2016-11-08 16:13] VITALS: BP 145/45
== END 2016-11-08 16:22 | DRG 194 ==
LOC: ED 12:55 → MED 17:27 → MEDTELE 19:16 → OBSVTOIN 11-05 17:36
PROVIDERS: ADMIT Hospitalist; ATTEND Hospitalist
DX: J10.1 Influenza due to other identified influenza virus with other respiratory manifestations (principal); R64 Cachexia; J84.9 Interstitial pulmonary disease, unspecified; G62.9 Polyneuropathy, unspecified; J44.9 Chronic obstructive pulmonary disease, unspecified; I08.3 Combined rheumatic disorders of mitral, aortic and tricuspid valves; Z68.1 Body mass index [BMI] 19.9 or less, adult; R05 Cough; F17.200 Nicotine dependence, unspecified, uncomplicated; R40.2412 Glasgow coma scale score 13-15, at arrival to emergency department; Z87.01 Personal history of pneumonia (recurrent); R32 Unspecified urinary incontinence; Z79.82 Long term (current) use of aspirin; R74.8 Abnormal levels of other serum enzymes; R11.0 Nausea; R09.02 Hypoxemia; K44.9 Diaphragmatic hernia without obstruction or gangrene; S39.011A Strain of muscle, fascia and tendon of abdomen, initial encounter; X58.XXXA Exposure to other specified factors, initial encounter; Y92.9 Unspecified place or not applicable
CPT/HCPCS: 36415; 70450; 71010; 74177; 80048; 80053; 81003; 81015; 83605; 83735; 84443; 84484; 85025; 85060; 87086; 87502; 93005; 93306; 94760; 99406; A9270-GY; G0378; G8978-GP-CK; G8979-GP-CI; J0780; J1644; J2270; J2405; Q9967

== ENCOUNTER 2016-11-12 14:58 | Inpatient (IN) | payer MEDICARE ==
[2016-11-12] MEDS ORDERED: NS 0.9% 1000 ML* 1,000 ML IV ONE (16:07)
--- NOTE | 2016-11-12 16:10 | ED ---
Kevyn Cao Billy, scribed for Giulia Rogers MD on 11/12/16 at 1601 . Head Injury - HPI Summary HPI Summary: Patient is an 81 year-old female BIBA to [facility] for evaluation of a head injury today. She had an unwitnessed fall at [facility], and there is a laceration noted to the occipital region of the head. She does not remember the fall. She denies any changes in vision. Pt reports pain at site of scalp contusion. Pt denies cp, sob, abd pain. Denies n/v/d. Unknown last Tdap. Per [place] records, concern for confusion - unclear duration. Pt is at [facility] for rehab - pt was recently hospitalized for influenza. Pt denies pain in extremities following the fall. Pt unable to give hx relating to fall. All medications were reviewed this visit. - History Of Current Complaint Chief Complaint: EDHeadInjury Stated Complaint: FALL Time Seen by Provider: 11/12/16 15:36 Hx Obtained From: Patient Mechanism Of Injury: Fall From A Standing Position Onset of Pain: Immediate Severity Currently: Moderate Severity Initially: Moderate Pain Intensity: 1 Pain Scale Used: 0-10 Numeric Location of Head Injury: Occipital Aggravating Factor(s): Other: - none Alleviating Factor(s): Other: - none Associated Signs And Symptoms: LOC Duration Unknown, Memory Loss - Allergies/Home Medications Allergies/Adverse Reactions: Allergies Allergy/AdvReac Type Severity Reaction Status Date / Time No Known Allergies Allergy Verified 11/04/16 14:40 PMH/Surg Hx/FS Hx/Imm Hx Previously Healthy: Yes Endocrine/Hematology History: Reports: Hx Anticoagulant Therapy - ASA Denies: Hx Diabetes Cardiovascular History: Denies: Hx Hypertension Respiratory History: Reports: Other Respiratory Problems/Disorders - recent hospitalization for influenza Sensory History: Denies: Hx Contacts or Glasses, Hx Hearing Aid Opthamlomology History: Denies: Hx Contacts or Glasses Neurological History: Denies: Hx CVA Infectious Disease History: Denies: Traveled Outside the [place] in Last 30 Days - Family History Known Family History: Negative: Cardiac Disease, Hypertension, Diabetes - Social History [facility]: [facility] Alcohol Use: Rare Substance Use Type: Reports: None Smoking Status (MU): Light Every Day Tobacco Smoker Review of Systems Constitutional: Other - report of confusion Negative: Fever, Chills Eyes: Negative ENT: Negative Negative: Sore Throat, Ear Ache, Nasal Discharge Cardiovascular: Negative Negative: Palpitations, Chest Pain Respiratory: Negative Negative: Shortness Of Breath, Cough Gastrointestinal: Negative Negative: Abdominal Pain, Vomiting, Nausea Genitourinary: Negative Musculoskeletal: Other - head injury Skin: Other - laceration to head Neurological: Negative Negative: Headache, Weakness Psychological: Normal Negative: Anxious, Depressed All Other Systems Reviewed And Are Negative: Yes Physical Exam Triage Information Reviewed: Yes Vital Signs On Initial Exam: Initial Vitals Temp Pulse Resp BP Pulse Ox 97.5 F 88 18 158/64 97 11/12/16 15:09 11/12/16 15:09 11/12/16 15:09 11/12/16 15:09 11/12/16 15:09 Vital Signs Reviewed: Yes Appearance: Positive: Well-Appearing, No Pain Distress, Well-Nourished Skin: Positive: Warm, Skin Color Reflects Adequate Perfusion, Other - pt with 1cm wound to right occipital area with surrounding contusion. No crepitus Head/Face: Positive: Other - scalp hematoma and wound Eyes: Positive: Normal, EOMI, APRIL ENT: Positive: Hearing grossly normal, TMs normal, Other - TM x2 clear turbinates WNL + lips and mm dry and pasty. Negative: Nasal congestion Neck: Positive: Supple, Nontender, No Lymphadenopathy Respiratory/Lung Sounds: Positive: Clear to Auscultation, Breath Sounds Present. Negative: Wheezes Cardiovascular: Positive: Normal, RRR. Negative: Leg Edema Left, Leg Edema Right Abdomen Description: Positive: Nontender, No Organomegaly, Soft Musculoskeletal: Positive: Other - + SLE, flex/ext external rotation hips b/l Full AROM upper ext Neurological: Positive: Normal, Alert, Oriented to Person Place, Time - alert to name, date of , president - current and last Not to place. Negative: Facial Droop, Slurred Speech Psychiatric: Positive: Normal AVPU Assessment: Alert - [place] Coma Scale Best Eye Response: 4 - Spontaneous Best Motor Response: 6 - Obeys Commands Best Verbal Response: 5 - Oriented Coma Scale Total: 14 Glascow Coma Scale Comments: GCS = 15 - please note not pre-fill 14 Diagnostics - Vital Signs Vital Signs Temp Pulse Resp BP Pulse Ox 11/12/16 15:16 97.5 F 88 18 158/64 92 11/12/16 15:09 97.5 F 88 18 158/64 97 - Laboratory Result Diagrams: 11/12/16 16:30 11/12/16 16:30 Lab Statement: Any lab studies that have been ordered have been reviewed, and results considered in the medical decision making process. - Radiology CXR Radiology Interpretation Completed By: Radiologist - 1. STABLE RIGHT APICAL PLEURAL THICKENING. 2. STABLE CHRONIC APPEARING INTERSTITIAL CHANGES - CT Brain CT Interpretation Completed By: Radiologist - 1. No evidence for traumatic brain injury or acute intracranial process. 2. Fluid levels in the maxillary sinuses as on the recent prior exam; correlate for potential sinusitis. Cervical Spine CT Interpretation Completed By: Radiologist - DEGENERATIVE DISC DISEASE AND OSTEOARTHRITIS. NO ACUTE OSSEOUS INJURY TO THE CERVICAL SPINE - EKG 1701 EKG Interpretation: NSR 79 bpm, no STEMI Re-Evaluation - Re-Evaluation First Eval Re-Evaluation Time: 17:26 Comment: Reviewed labs and imaging with pt. wound cleansed with sterile saline Wound 1.5cm - no active bleeding. Pt adament does not want me to close wound - eddi or glue. States "it is fine, leave it alone." Head Injury Course/Dx Assessment/Plan: Pt with scalp wound - found on floor - Pt with report of pain at site of lac - no other complaints. Also concern for confusion - Pt alert to name, and president- not place - unclear baseline. Pt appears dry on exam. will check labs, IVF, ct head, neck. cxr. urine. wound care. reassess - Diagnoses Provider Diagnoses: Fall, Scalp laceration, NSTEMI (non-ST elevated myocardial infarction) - Physician Notifications Discussed Care Of Patient With: Dr. Kulkarni [id number] - accepting pt to service Time Discussed With Above Provider: 17:25 Instructed by Provider To: Admit As Inpatient Discharge - Discharge Plan Condition: Good Disposition: ADMITTED TO [facility] documentation as recorded by the Kevyn rivers Billy accurately reflects the service I personally performed and the decisions made by me, Giulia Rogers MD.
--- NOTE | 2016-11-12 16:18 | RAD ---
Indication: Unwitnessed fall. Head laceration. Comparison: November 04, 2016 CT. Technique: Noncontrast CT vertex of skull through foramen magnum. Report: The sulci, ventricles, and basal cisterns are normal for age. Valle matter white matter differentiation is preserved without evidence for edema. No intra or extra axial hemorrhage, mass, or fluid collection detected. Unremarkable visualized orbital contents. Negative for calvarial or skull base fracture or suspicious focal osseous lesion. Fluid levels in the maxillary sinuses with similar although smaller volumes of fluid on the recent exam of November 04, 2016. Grossly clear mastoid air spaces. Unremarkable orbital contents. The visualized paranasal sinuses and mastoid air spaces are clear. No scalp hematoma evident. IMPRESSION: 1. No evidence for traumatic brain injury or acute intracranial process. 2. Fluid levels in the maxillary sinuses as on the recent prior exam; correlate for potential sinusitis.
--- NOTE | 2016-11-12 16:21 | RAD ---
HISTORY: Unwitnessed fall, laceration to head COMPARISONS: None TECHNIQUE: Multiple contiguous axial CT scans were obtained of the cervical spine without intravenous contrast, with coronal and sagittal multiplanar reformations. FINDINGS: BRAIN: The visualized brain is unremarkable CENTRAL CANAL: Evaluation of the central canal is limited on CT technique; however, there is no obvious canalicular mass or epidural hemorrhage. ALIGNMENT: The alignment is normal, without subluxation or dislocation. VERTEBRAL BODIES: There is diffuse osteopenia. There is no displaced fracture. There is mild anterolateral marginal osteophyte formation. The odontoid process is intact. JOINTS: There is osteoarthritis of the uncovertebral and facet joints. There is osteoarthritis of the atlantoaxial articulations. MUSCULATURE: Unremarkable INTERVERTEBRAL DISCS: There is diffuse loss of intervertebral disc height. AXIAL IMAGES: C2-C3: There is bilateral facet hypertrophy. There is no osseous neural foraminal area or central canal stenosis. C3-C4: There is bilateral uncovertebral and facet hypertrophy. There is moderate severe bilateral neural foraminal narrowing. There is no osseous central canal stenosis. C4-C5: There is bilateral uncovertebral and facet hypertrophy. There is moderate bilateral neuroforaminal narrowing. There is no osseous central canal stenosis. C5-C6: There is bilateral facet hypertrophy. There is no osseous neural foraminal narrowing or central canal stenosis. C6-C7: There is bilateral facet hypertrophy. There is no significant osseous neural foraminal narrowing or central canal stenosis. C7-T1: There is no osseous neural foraminal narrowing or central canal stenosis. SOFT TISSUES: The prevertebral fat stripe is preserved. There is chronic desiccation. There is right apical pleural thickening of the right upper lobe bronchiectasis the esophagus is patulous with debris noted within the esophagus. OTHER: None. IMPRESSION: DEGENERATIVE DISC DISEASE AND OSTEOARTHRITIS. NO ACUTE OSSEOUS INJURY TO THE CERVICAL SPINE
[2016-11-12 16:40] LABS: Hematocrit 37 % (35-47); Hemoglobin 11.8 g/dl (12.0-16.0); Mean Corpuscular HGB Conc 32 g/dl (31-36); Mean Corpuscular Hemoglobin 21 pg (27-31); Mean Platelet Volume 7 um3 (7.4-10.4); Red Blood Count 5.51 10^6/ul (4.0-5.4); Red Cell Distribution Width 17 % (10.5-15)
[2016-11-12] MEDS ORDERED: Acetaminophen ADULT LIQ* 650 MG/20.3 ML UDC PO ONE (16:40)
[2016-11-12 16:46] LABS: Add Diff/Slide Review? Manual Diff Added; Comments Flag Yes; Mean Corpuscular Volume 68 fL (80-97)
[2016-11-12 16:56] LABS: Albumin 3.6 g/dL (3.2-5.2); BUN/Creatinine Ratio 28.9 (8-20); Calcium 10.2 mg/dL (8.6-10.3); EGFR African American 209.6 (>60); EGFR Non-African American 162.9 (>60); Globulin 5.9 g/dL (2-4); Potassium 4.2 mmol/L (3.5-5.0); Total Bilirubin 0.4 mg/dL (0.2-1.0); Total Protein 9.5 g/dL (6.4-8.9)
[2016-11-12 17:00] LABS: Troponin I 0.19 ng/mL (<0.04)
[2016-11-12 17:05] LABS: Immature Granulocytes 2 % (0-9); Metamyelocytes % 1 % (0-2); Neutrophil % 84 % (38-83)
[2016-11-12 17:06] LABS: Add Path Review? YES; Microcytosis 1+; Toxic Granulation 1+
--- NOTE | 2016-11-12 17:07 | RAD ---
HISTORY: Unwitnessed fall, confusion, recent influenza COMPARISONS: November 06, 2016 VIEWS:1: Single frontal portable view of the chest at 4:30 PM FINDINGS: LINES AND TUBES: None. CARDIOMEDIASTINAL SILHOUETTE: The cardiomediastinal silhouette is normal for portable technique. PLEURA: There is stable right apical pleural thickening LUNG PARENCHYMA: There is hyperinflation with stable chronic appearing reticular markings ABDOMEN: The upper abdomen is clear. There is no subphrenic gas. 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 Degenerative changes are noted IMPRESSION: 1. STABLE RIGHT APICAL PLEURAL THICKENING. 2. STABLE CHRONIC APPEARING INTERSTITIAL CHANGES
[2016-11-12] MEDS ORDERED: Ondansetron ODT TAB* 4 MG PO PRN (17:51)
[2016-11-12] MEDS ORDERED: Albuterol HFA INHALER* 8 gm MDI INH PRN (17:51)
[2016-11-12] MEDS ORDERED: Al Hydrox/Mg Hydrox/Simet LIQ* 30 ML UDC PO PRN (17:51)
[2016-11-12] MEDS ORDERED: Calcium Carbonate CHEW TAB* 500 MG (TUMS) PO PRN (17:51)
[2016-11-12] MEDS ORDERED: Aspirin TAB* 325 MG PO ONE (17:52)
[2016-11-12] MEDS: Metoprolol Succinate XL TAB* 25 MG PO SCH (20:16)
[2016-11-12] MEDS: Enoxaparin(*) 40 MG/0.4 ML SYR SUBCUT SCH (20:18)
--- NOTE | 2016-11-12 22:52 | HP ---
HISTORY AND PHYSICAL: DATE OF ADMISSION: 11/12/16 The patient is a resident at [facility]. CHIEF COMPLAINT: Fall. HISTORY OF PRESENT ILLNESS: Ms. Oliver is an 81-year-old female with past medical history of likely underlying COPD, possibly dementia and recent admission for influenza who presented to the hospital with an unwitnessed fall. The patient is a resident at [facility] and was discharged there on . Apparently, the patient had a fall today that was unwitnessed. She was found on the ground with a scalp laceration. The patient is unable to contribute much history. She does not recall any fall today. She states she does remember being at [facility], although she states that she has been there for a week. She is aggravated during our conversation and her answers are very brief. She states she is not having any headache, chest pain, difficulty breathing presently. PAST MEDICAL HISTORY: Likely underlying COPD, recent admission for influenza, possibly underlying dementia. PAST SURGICAL HISTORY: She had tooth extractions. HOME MEDICATIONS: 1. Albuterol 1 puff inhale every 4 as needed for shortness of breath or wheezing. 2. Maalox 30 mL by mouth every 2 hours as needed for indigestion. 3. Tylenol 650 mg by mouth every 4 hours as needed for pain. 4. Senna 1 tablet by mouth daily as needed for constipation. 5. Zofran 4 mg by mouth every 6 hours as needed for nausea. 6. Calcium carbonate 500 mg by mouth every 4 hours as needed for indigestion. 7. Aspirin 81 mg by mouth daily. ALLERGIES: The patient reports no known drug allergies. FAMILY HISTORY: Unable to obtain. REVIEW OF SYSTEMS: Unable to obtain. PHYSICAL EXAMINATION GENERAL: The patient is an elderly frail female lying in bed in no apparent distress. VITAL SIGNS: On admission, temperature 97.5, respiratory rate of 18, heart rate of 88, O2 saturation 92% on room air, blood pressure 158/64. HEENT: The patient has a small 2-cm scalp laceration on posterior right scalp. Mucous membranes are dry. No cervical adenopathy. CARDIOVASCULAR: Regular rate and rhythm. S1, S2. No murmurs, gallops, or rubs. No lower extremity edema. The patient declined remainder of exam. LABS AND DIAGNOSTICS: White blood cell count of 10, hemoglobin of 11.8, platelets of 872. Sodium 138, potassium 4.2, chloride 94, carbon dioxide 36, BUN 11, creatinine 0.38, glucose of 100. LFTs within normal limits. Troponin 0.19. Total protein is 9.5. CT of the head, she has no evidence for traumatic brain injury or acute intracranial process. Fluid levels in the maxillary sinus as on the recent exam. Cervical spine CT shows degenerative disk disease and osteoarthritis. No acute osseous injury to the spine. Chest x-ray personally reviewed shows no acute changes, some stable chronic changes. EKG personally reviewed shows normal sinus rhythm, maybe some mild ST depressions in V3 and V4. ASSESSMENT AND PLAN: Unwitnessed fall and troponin elevation in an 81-year-old female with past medical history of possibly underlying chronic obstructive pulmonary disease, mild dementia. 1. Unwitnessed fall, unclear if the patient may have syncopized. She has a mild troponin elevation. We will monitor her on telemetry. Check orthostatics if possible. The patient is already at [facility] for rehab. It is possible she may have a concussion from this fall as I seem to recall her being a bit more with it last week. Urinalysis is pending at this time. She has a urinary tract infection. This could have certainly contributed to her presentation. 2. Troponin elevation. Troponin of 0.19. The patient is denying any chest pain. She has some nonspecific EKG changes. We will trend the troponins for now. We will order an echo for tomorrow. She had one just this past admission , but with this new troponin elevation, we will look for any new wall motion abnormalities. For now, we will give a full dose aspirin and continue her daily aspirin and we will write for a low dose beta-carlos. We will not anticoagulate at this point; however, if her troponins continue to trend up, we can consider that overnight. 3. DVT prophylaxis, Lovenox subcu. 4. The patient is DNR. MOLST form is in the chart. TIME SPENT: Total time spent on this admission, 40 minutes, with over half the time spent [id number] with the patient in counseling and coordinating care. [id number]/[facility] #: [id number] JOANNA
[2016-11-13 01:43] LABS: Troponin I 0.16 ng/mL (<0.04)
[2016-11-13 06:05] LABS: Hematocrit 29 % (35-47); Hemoglobin 9.2 g/dl (12.0-16.0); Mean Corpuscular HGB Conc 32 g/dl (31-36); Mean Corpuscular Hemoglobin 21 pg (27-31); Mean Platelet Volume 7 um3 (7.4-10.4); Red Blood Count 4.31 10^6/ul (4.0-5.4); Red Cell Distribution Width 17 % (10.5-15)
[2016-11-13 06:06] LABS: Comments Flag Yes; Mean Corpuscular Volume 68 fL (80-97)
[2016-11-13 06:27] LABS: Anion Gap 6 mmol/L (2-11); Blood Urea Nitrogen 9 mg/dL (6-24); CO2 Carbon Dioxide 31 mmol/L (22-32); Calcium 8.5 mg/dL (8.6-10.3); Chloride 100 mmol/L (101-111); EGFR African American 339.7 (>60); EGFR Non-African American 264.2 (>60); Glucose 83 mg/dL (70-100); Potassium 3.6 mmol/L (3.5-5.0); Sodium 137 mmol/L (133-145)
[2016-11-13 08:32] LABS: Total Iron Binding Capacity 195 mcg/dL (250-450); Transferrin 139 mg/dL (203-362)
[2016-11-13] MEDS: Aspirin EC Low Dose* 81 MG TAB.EC PO SCH (08:44)
[2016-11-13] MEDS: Metoprolol Succinate XL TAB* 25 MG PO SCH (08:45)
[2016-11-13 08:47] LABS: Iron < 15 ug/dL (50-212)
[2016-11-13 08:54] LABS: Ferritin 88.6 ng/mL (11-307)
[2016-11-13 08:57] LABS: Folate 15.25 ng/mL (>3.99)
[2016-11-13 08:58] LABS: Vitamin B12 > 1450 pg/mL (180-914)
[2016-11-13] MEDS: Acetaminophen TAB* 325 MG PO PRN ×2 (11:02→22:38)
[2016-11-13] MEDS: Ascorbic Acid TAB* 500 MG PO SCH (11:29)
[2016-11-13] MEDS: Ferrous Sulfate TAB* 325 MG PO SCH (11:29)
--- NOTE | 2016-11-13 12:44 | RAD ---
INDICATION: Right foot pain COMPARISON: None TECHNIQUE: AP, lateral, and oblique views were obtained. FINDINGS: The bony structures are very osteopenic. No acute fracture is seen. There is a moderate-sized plantar calcaneal spur. The soft tissues are normal. IMPRESSION: NO ACUTE BONY FINDINGS. HEEL SPUR.
--- NOTE | 2016-11-13 15:58 | PN ---
Subjective Date of Service: 11/13/16 Interval History: HOSPITALIST PROGRESS NOTE Patient seen and examined at bedside. She c/o right foot pain. Does not remember what happened. Family History: Unchanged from Admission Social History: Unchanged from Admission Past Medical History: Unchanged from Admission Objective Active Medications: Acetaminophen (Tylenol Tab*) 650 mg PO Q4H PRN PRN Reason: FEVER/PAIN Last Admin: 11/13/16 11:02 Dose: 650 mg Al Hydrox/Mg Hydrox/Simethicone (Maalox Plus*) 30 ml PO Q2H PRN PRN Reason: INDIGESTION Albuterol (Ventolin Hfa Inhaler*) 1 puff INH Q4H PRN PRN Reason: SOB/WHEEZING Ascorbic Acid (Vitamin C Tab*) 500 mg PO DAILY [facility] Last Admin: 11/13/16 11:29 Dose: 500 mg Aspirin (Aspirin Ec Low Dose*) 81 mg PO DAILY [facility] Last Admin: 11/13/16 08:44 Dose: 81 mg Calcium Carbonate (Tums*) 500 mg PO Q4H PRN PRN Reason: INDIGESTION Enoxaparin Sodium (Lovenox(*)) 40 mg SUBCUT Q24H [facility] Last Admin: 11/12/16 20:18 Dose: 40 mg Ferrous Sulfate (Ferrous Sulfate Tab*) 325 mg PO DAILY [facility] Last Admin: 11/13/16 11:29 Dose: 325 mg Metoprolol Succinate (Toprol Xl Tab*) 25 mg PO DAILY [facility] Last Admin: 11/13/16 08:45 Dose: 25 mg Ondansetron HCl (Zofran Odt Tab*) 4 mg PO Q6H PRN PRN Reason: NAUSEA Senna (Senokot Tab*) 1 tab PO DAILY PRN PRN Reason: CONSTIPATION Vital Signs 11/13/16 11/13/16 11/13/16 11:00 13:25 13:26 Temperature 98.2 F Pulse Rate 76 73 80 Respiratory 18 Rate Blood Pressure 159/51 136/56 150/52 (mmHg) O2 Sat by Pulse 91 92 Oximetry Oxygen Devices in Use Now: None Appearance: Elderly lady lying in bed in NAD. Eyes: No Scleral Icterus Ears/Nose/Mouth/Throat: Mucous Membranes Moist Neck: Trachea Midline Respiratory: Symmetrical Chest Expansion and Respiratory Effort, Clear to Auscultation Cardiovascular: RRR - Normal S1 and S2 Abdominal: NL Sounds; No Tenderness; No Distention Extremities: No Edema Neurological: - - AAOx1 (self), WEISS Lines/Tubes/Other Access: Clean, Dry and Intact Peripheral IV Nutrition: Taking PO's Result Diagrams: 11/13/16 05:57 11/13/16 05:57 Assess/Plan/Problems-Billing Assessment: Mrs. Oliver is an 81yo F with PMH of possible dementia, COPD, recent admission for Influenza, who's now at [facility], who presented after being found on the floor - syncope vs fall. - Patient Problems (1) Fall Comment: - Patient does not recall events that prompted her ED visit. - Could be fall or syncopal episode. - CT brain and cervical spine appreciated. - Recent echo done 11/05 showed EF 55-60% with no wall motion abnormalities. - Continue to monitor on Telemetry. (2) Troponin level elevated Comment: - Patient had borderline troponins on her prior admission. - No chest pain or dyspnea, no ischemic EKG changes, and recent echo showed no wall motions abnormalities. - I believe further w/u is not indicated at this time. (3) Right foot pain Comment: - Check xray. (4) DVT prophylaxis Comment: - Lovenox.
[2016-11-13] MEDS: Enoxaparin(*) 40 MG/0.4 ML SYR SUBCUT SCH (17:11)
[2016-11-13] MEDS: Senna TAB PO PRN (17:11)
[2016-11-14] MEDS: Aspirin EC Low Dose* 81 MG TAB.EC PO SCH (08:36)
[2016-11-14] MEDS: Ascorbic Acid TAB* 500 MG PO SCH (08:36)
[2016-11-14] MEDS: Metoprolol Succinate XL TAB* 25 MG PO SCH (08:36)
[2016-11-14] MEDS: Ferrous Sulfate TAB* 325 MG PO SCH (08:36)
[2016-11-14] MEDS ORDERED: Iohexol 350* (CONTRAST) 500 ML MDV IV SCH (08:51)
--- NOTE | 2016-11-14 10:27 | RAD ---
Indication: Hypoxia, elevated troponins. Contrast: Administered 55.4 ml of OMNIPAQUE 350 mg/ml CTA of the chest was performed after IV contrast administration. Coronal and sagittal reconstructed images were obtained. Pulmonary arterial tree is well opacified. There are no evidence of filling defects present to suggest pulmonary embolus. There is a right paratracheal lymphadenopathy measuring up to 19 mm. Subcarinal lymph node measures up to 3.2 cm. Right hilar adenopathy measures up to 12 mm. The heart demonstrates no pericardial effusion. There is a hiatal hernia noted. There is consolidation in the left lower lobe. This may represent pneumonia or other with an obstructing lesion is not totally excluded. Emphysematous changes are noted in the right lung base. Airspace disease is noted in the left upper lobe. An right upper lobe. The visualized abdominal organs are unremarkable. IMPRESSION: NO EVIDENCE OF PULMONARY EMBOLUS IS NOTED. LEFT LOWER LOBE CONSOLIDATION WITH LEFT PLEURAL EFFUSION LIKELY REPRESENTS PNEUMONIA ALTHOUGH OBSTRUCTING LESION IS NOT EXCLUDED. BRONCHIECTASIS IS NOTED IN THE RIGHT UPPER LOBE. THERE ARE ENLARGED SUBCARINAL AND RIGHT PARATRACHEAL LYMPH NODES DESCRIBED ABOVE.
[2016-11-14] MEDS: Levofloxacin TAB* 500 MG PO SCH (11:23)
--- NOTE | 2016-11-14 15:37 | PN ---
Subjective Date of Service: 11/14/16 Interval History: HOSPITALIST PROGRESS NOTE Patient seen and examined at bedside. She feels weak today and c/o pain on her right side when she coughs. Family History: Unchanged from Admission Social History: Unchanged from Admission Past Medical History: Unchanged from Admission Objective Active Medications: Acetaminophen (Tylenol Tab*) 650 mg PO Q4H PRN PRN Reason: FEVER/PAIN Last Admin: 11/13/16 22:38 Dose: 650 mg Al Hydrox/Mg Hydrox/Simethicone (Maalox Plus*) 30 ml PO Q2H PRN PRN Reason: INDIGESTION Albuterol (Ventolin Hfa Inhaler*) 1 puff INH Q4H PRN PRN Reason: SOB/WHEEZING Ascorbic Acid (Vitamin C Tab*) [address] [facility] Last Admin: 11/14/16 08:36 Dose: 500 mg Aspirin (Aspirin Ec Low Dose*) [address] [facility] Last Admin: 11/14/16 08:36 Dose: 81 mg Calcium Carbonate (Tums*) 500 mg PO Q4H PRN PRN Reason: INDIGESTION Enoxaparin Sodium (Lovenox(*)) [address] [facility] Last Admin: 11/13/16 17:11 Dose: 40 mg Ferrous Sulfate (Ferrous Sulfate Tab*) [address] [facility] Last Admin: 11/14/16 08:36 Dose: 325 mg Iohexol (Omnipaque 350 (Contrast)-) [address] [facility] Stop: 11/16/16 08:50 Last Admin: 11/14/16 10:05 Dose: 53 ml Levofloxacin (Levaquin Tab*) [address] [facility] Last Admin: 11/14/16 11:23 Dose: 500 mg Metoprolol Succinate (Toprol Xl Tab*) [address] [facility] Last Admin: 11/14/16 08:36 Dose: 25 mg Senna (Senokot Tab*) 1 tab PO DAILY PRN PRN Reason: CONSTIPATION Last Admin: 11/13/16 17:11 Dose: 1 tab Vital Signs 11/14/16 11/14/16 11/14/16 08:03 10:59 14:01 Temperature 98.3 F 101.5 F 98.0 F Pulse Rate 73 72 72 Respiratory 22 20 Rate Blood Pressure 148/46 144/54 155/54 (mmHg) O2 Sat by Pulse 94 95 94 Oximetry Oxygen Devices in Use Now: None Appearance: Elderly lady lying in bed in NAD. Eyes: No Scleral Icterus Ears/Nose/Mouth/Throat: Mucous Membranes Moist Neck: Trachea Midline Respiratory: Symmetrical Chest Expansion and Respiratory Effort, Clear to Auscultation Cardiovascular: RRR - Normal S1 and S2 Abdominal: NL Sounds; No Tenderness; No Distention Extremities: No Edema Neurological: - - AAOx1 (self), WEISS Lines/Tubes/Other Access: Clean, Dry and Intact Peripheral IV Nutrition: Taking PO's Result Diagrams: 11/13/16 05:57 11/13/16 05:57 Assess/Plan/Problems-Billing Assessment: Mrs. Oliver is an 81yo F with PMH of possible dementia, COPD, recent admission for Influenza, who's now at [facility], who presented after being found on the floor - syncope vs fall. - Patient Problems (1) Pneumonia Comment: - Suspect her weakness, fatigue, are secondary to pneumonia. - CTA chest was negative for PE, but revealed LLL consolidation. - Start Levofloxacin. (2) Fall Comment: - Patient does not recall events that prompted her ED visit. - Could be fall or syncopal episode. - CT brain and cervical spine appreciated. - Recent echo done 11/05 showed EF 55-60% with no wall motion abnormalities. - D/c Telemetry. (3) Troponin level elevated Comment: - Patient had borderline troponins on her prior admission. - No chest pain or dyspnea, no ischemic EKG changes, and recent echo showed no wall motions abnormalities. - I believe further w/u is not indicated at this time. (4) Right foot pain Comment: - Xray negative for fracture. (5) DVT prophylaxis Comment: - Lovenox.
[2016-11-14] MEDS: Enoxaparin(*) 40 MG/0.4 ML SYR SUBCUT SCH (17:26)
[2016-11-14] MEDS: Senna TAB PO PRN (21:13)
[2016-11-14] MEDS: Acetaminophen TAB* 325 MG PO PRN (22:35)
[2016-11-15 05:37] LABS: Hematocrit 28 % (35-47); Hemoglobin 8.8 g/dl (12.0-16.0); Mean Corpuscular HGB Conc 31 g/dl (31-36); Mean Corpuscular Hemoglobin 21 pg (27-31); Mean Corpuscular Volume 68 fL (80-97); Mean Platelet Volume 7 um3 (7.4-10.4); Red Blood Count 4.13 10^6/ul (4.0-5.4); Red Cell Distribution Width 18 % (10.5-15); White Blood Count 12.7 10^3/ul (3.5-10.8)
[2016-11-15 05:40] LABS: Add Diff/Slide Review? Slide Review Added; Comments Flag Yes
[2016-11-15 05:54] LABS: C Reactive Protein 138.81 mg/L (< 5.00); Calcium 8.3 mg/dL (8.6-10.3); EGFR African American 310.9 (>60); EGFR Non-African American 241.7 (>60); Potassium 3.4 mmol/L (3.5-5.0)
[2016-11-15] MEDS: Ferrous Sulfate TAB* 325 MG PO SCH (08:44)
[2016-11-15] MEDS: Ascorbic Acid TAB* 500 MG PO SCH (08:44)
[2016-11-15] MEDS: Aspirin EC Low Dose* 81 MG TAB.EC PO SCH (08:45)
[2016-11-15] MEDS: Metoprolol Succinate XL TAB* 25 MG PO SCH (08:45)
[2016-11-15] MEDS: Levofloxacin TAB* 500 MG PO SCH (11:37)
--- NOTE | 2016-11-15 15:29 | PN ---
Subjective Date of Service: 11/15/16 Interval History: HOSPITALIST PROGRESS NOTE Patient seen and examined at bedside. She still has left sided chest pain when she coughs and is bringing up yellow sputum. Family History: Unchanged from Admission Social History: Unchanged from Admission Past Medical History: Unchanged from Admission Objective Active Medications: Acetaminophen (Tylenol Tab*) 650 mg PO Q4H PRN PRN Reason: FEVER/PAIN Last Admin: 11/14/16 22:35 Dose: 650 mg Al Hydrox/Mg Hydrox/Simethicone (Maalox Plus*) 30 ml PO Q2H PRN PRN Reason: INDIGESTION Albuterol (Ventolin Hfa Inhaler*) 1 puff INH Q4H PRN PRN Reason: SOB/WHEEZING Ascorbic Acid (Vitamin C Tab*) 500 mg PO DAILY [facility] Last Admin: 11/15/16 08:44 Dose: 500 mg Aspirin (Aspirin Ec Low Dose*) 81 mg PO DAILY [facility] Last Admin: 11/15/16 08:45 Dose: 81 mg Calcium Carbonate (Tums*) 500 mg PO Q4H PRN PRN Reason: INDIGESTION Enoxaparin Sodium (Lovenox(*)) 40 mg SUBCUT Q24H [facility] Last Admin: 11/14/16 17:26 Dose: 40 mg Ferrous Sulfate (Ferrous Sulfate Tab*) 325 mg PO DAILY [facility] Last Admin: 11/15/16 08:44 Dose: 325 mg Iohexol (Omnipaque 350 (Contrast)-) 53 ml IV ONCE [facility] Stop: 11/16/16 08:50 Last Admin: 11/14/16 10:05 Dose: 53 ml Levofloxacin (Levaquin Tab*) 500 mg PO Q24H [facility] Last Admin: 11/15/16 11:37 Dose: 500 mg Metoprolol Succinate (Toprol Xl Tab*) 25 mg PO DAILY [facility] Last Admin: 11/15/16 08:45 Dose: 25 mg Senna (Senokot Tab*) 1 tab PO DAILY PRN PRN Reason: CONSTIPATION Last Admin: 11/14/16 21:13 Dose: 1 tab Vital Signs 11/15/16 14:39 Temperature 98.0 F Pulse Rate 72 Respiratory 16 Rate Blood Pressure 140/36 (mmHg) O2 Sat by Pulse 94 Oximetry Oxygen Devices in Use Now: None Appearance: Elderly lady lying in a recliner in [facility]. Eyes: No Scleral Icterus Ears/Nose/Mouth/Throat: Mucous Membranes Moist Neck: Trachea Midline Respiratory: Symmetrical Chest Expansion and Respiratory Effort, - - BS+ bilaterally with left base crackles Cardiovascular: RRR - Normal S1 and S2 Abdominal: NL Sounds; No Tenderness; No Distention Neurological: - - AAOx1 (self), WEISS Lines/Tubes/Other Access: Clean, Dry and Intact Peripheral IV Nutrition: Taking PO's Result Diagrams: 11/15/16 04:36 11/15/16 04:36 Assess/Plan/Problems-Billing Assessment: Mrs. Oliver is an 81yo F with PMH of possible dementia, COPD, recent admission for Influenza, [facility], who presented after being found on the floor - syncope vs fall. - Patient Problems (1) Pneumonia Comment: - Suspect her weakness, fatigue, are secondary to pneumonia. - CTA chest was negative for PE, but revealed LLL consolidation. - Continue Levofloxacin. (2) Fall Comment: - Patient does not recall events that prompted her ED visit. - Likely associated with weakness secondary to pneumonia. - CT brain and cervical spine appreciated. - Recent echo done 11/05 showed EF 55-60% with no wall motion abnormalities. (3) Troponin level elevated Comment: - Patient had borderline troponins on her prior admission. - No chest pain or dyspnea, no ischemic EKG changes, and recent echo showed no wall motions abnormalities. - I believe further w/u is not indicated at this time. (4) Right foot pain Comment: - Xray negative for fracture. (5) DVT prophylaxis Comment: - Lovenox.
[2016-11-15] MEDS: Enoxaparin(*) 40 MG/0.4 ML SYR SUBCUT SCH (16:47)
[2016-11-15] MEDS: Potassium Chloride LIQUID* 20 MEQ PACKET PO SCH (16:47)
[2016-11-15] MEDS: Acetaminophen TAB* 325 MG PO PRN (20:10)
[2016-11-16] MEDS: Acetaminophen TAB* 325 MG PO PRN ×3 (03:23→21:24)
[2016-11-16] MEDS: Potassium Chloride LIQUID* 20 MEQ PACKET PO SCH (09:20)
[2016-11-16] MEDS: Ascorbic Acid TAB* 500 MG PO SCH (09:21)
[2016-11-16] MEDS: Ferrous Sulfate TAB* 325 MG PO SCH (09:21)
[2016-11-16] MEDS: Metoprolol Succinate XL TAB* 25 MG PO SCH (09:21)
[2016-11-16] MEDS: Aspirin EC Low Dose* 81 MG TAB.EC PO SCH (09:21)
[2016-11-16] MEDS: Levofloxacin TAB* 500 MG PO SCH (11:36)
--- NOTE | 2016-11-16 15:54 | PN ---
Subjective Date of Service: 11/16/16 Interval History: HOSPITALIST PROGRESS NOTE Patient seen and examined at bedside. She offers no complaints, left sided chest/back pain is less intense. Family History: Unchanged from Admission Social History: Unchanged from Admission Past Medical History: Unchanged from Admission Objective Active Medications: Acetaminophen (Tylenol Tab*) 650 mg PO Q4H PRN PRN Reason: FEVER/PAIN Last Admin: 11/16/16 03:23 Dose: 650 mg Al Hydrox/Mg Hydrox/Simethicone (Maalox Plus*) 30 ml PO Q2H PRN PRN Reason: INDIGESTION Albuterol (Ventolin Hfa Inhaler*) 1 puff INH Q4H PRN PRN Reason: SOB/WHEEZING Ascorbic Acid (Vitamin C Tab*) 500 mg PO DAILY [facility] Last Admin: 11/16/16 09:21 Dose: 500 mg Aspirin (Aspirin Ec Low Dose*) 81 mg PO DAILY [facility] Last Admin: 11/16/16 09:21 Dose: 81 mg Calcium Carbonate (Tums*) 500 mg PO Q4H PRN PRN Reason: INDIGESTION Enoxaparin Sodium (Lovenox(*)) 40 mg SUBCUT Q24H [facility] Last Admin: 11/15/16 16:47 Dose: 40 mg Ferrous Sulfate (Ferrous Sulfate Tab*) 325 mg PO DAILY [facility] Last Admin: 11/16/16 09:21 Dose: 325 mg Levofloxacin (Levaquin Tab*) 500 mg PO Q24H [facility] Last Admin: 11/16/16 11:36 Dose: 500 mg Metoprolol Succinate (Toprol Xl Tab*) 25 mg PO DAILY [facility] Last Admin: 11/16/16 09:21 Dose: 25 mg Potassium Chloride (Klor-Con Liquid*) 20 meq PO DAILY [facility] Last Admin: 11/16/16 09:20 Dose: 20 meq Senna (Senokot Tab*) 1 tab PO DAILY PRN PRN Reason: CONSTIPATION Last Admin: 11/14/16 21:13 Dose: 1 tab Vital Signs 11/16/16 11/16/16 11:33 11:35 Temperature 96.3 F Pulse Rate 74 75 Respiratory 17 Rate Blood Pressure 155/60 149/92 (mmHg) O2 Sat by Pulse 97 97 Oximetry Oxygen Devices in Use Now: None Appearance: Elderly lady sitting up in a recliner in [facility]. Eyes: No Scleral Icterus Ears/Nose/Mouth/Throat: Mucous Membranes Moist Neck: Trachea Midline Respiratory: Symmetrical Chest Expansion and Respiratory Effort, - - BS+ bilaterally with left base crackles Cardiovascular: RRR - Normal S1 and S2 Abdominal: NL Sounds; No Tenderness; No Distention Neurological: - - AAox2 (self and place), WEISS Lines/Tubes/Other Access: Clean, Dry and Intact Peripheral IV Nutrition: Taking PO's Result Diagrams: 11/15/16 04:36 11/15/16 04:36 Assess/Plan/Problems-Billing Assessment: Mrs. Oliver is an 81yo F with PMH of possible dementia, COPD, recent admission for Influenza, who's now at [facility], who presented after being found on the floor - syncope vs fall. - Patient Problems (1) Pneumonia Comment: - Suspect her weakness, fatigue, are secondary to pneumonia. - CTA chest was negative for PE, but revealed LLL consolidation. - Continue Levofloxacin. (2) Fall Comment: - Patient does not recall events that prompted her ED visit. - Likely associated with weakness secondary to pneumonia. - CT brain and cervical spine appreciated. - Recent echo done 11/05 showed EF 55-60% with no wall motion abnormalities. (3) Troponin level elevated Comment: - Patient had borderline troponins on her prior admission. - No chest pain or dyspnea, no ischemic EKG changes, and recent echo showed no wall motions abnormalities. - I believe further w/u is not indicated at this time. (4) Right foot pain Comment: - Xray negative for fracture. (5) DVT prophylaxis Comment: - Lovenox. Status and Disposition: Inpatient. Anticipate d/c to [facility] in AM.
[2016-11-16] MEDS: Enoxaparin(*) 40 MG/0.4 ML SYR SUBCUT SCH (16:45)
[2016-11-17] MEDS: Acetaminophen TAB* 325 MG PO PRN ×2 (01:24→05:37)
[2016-11-17] MEDS: Ascorbic Acid TAB* 500 MG PO SCH (09:01)
[2016-11-17] MEDS: Ferrous Sulfate TAB* 325 MG PO SCH (09:01)
[2016-11-17] MEDS: Potassium Chloride LIQUID* 20 MEQ PACKET PO SCH (09:01)
[2016-11-17] MEDS: Metoprolol Succinate XL TAB* 25 MG PO SCH (09:01)
[2016-11-17] MEDS: Aspirin EC Low Dose* 81 MG TAB.EC PO SCH (09:01)
[2016-11-17] MEDS: Levofloxacin TAB* 500 MG PO SCH (11:05)
--- NOTE | 2016-11-17 11:06 | DS ---
DISCHARGE SUMMARY: DATE OF ADMISSION: 11/12/16 DATE OF DISCHARGE: 11/17/16 PRIMARY CARE PHYSICIAN: Dr. Damián Khoury DISCHARGE DIAGNOSES: 1. Status post fall. 2. Post influenza pneumonia. 3. Troponin elevation, likely secondary to increased demand in the setting of infection. 4. Mild hypokalemia. 5. Iron-deficiency anemia. 6. Thrombocytosis secondary to iron deficiency. SECONDARY DIAGNOSES: 1. Recent admission for influenza. 2. Chronic obstructive pulmonary disease. 3. Underlying dementia. MEDICATIONS: 1. Acetaminophen 650 mg p.o. q.4 hours p.r.n. pain or fever. 2. Maalox Plus 30 mL p.o. q.2 hours p.r.n. indigestion. 3. Albuterol HFA one puff inhaled q.4 hours p.r.n. shortness of breath and wheezing. 4. Vitamin C 500 mg p.o. daily. 5. Aspirin 81 mg p.o. daily. 6. Calcium carbonate 500 mg p.o. q.4 hours as needed for indigestion. 7. Doxycycline 100 mg p.o. b.i.d. for 5 days. 8. Ferrous sulfate 325 mg p.o. daily. 9. Metoprolol succinate 25 mg p.o. daily. 10. Senna 1 tablet p.o. daily as needed for constipation. HOSPITAL COURSE: Ms. Oliver is an 81-year-old lady with a past medical history as stated above that was recently admitted to [facility] with influenza and discharged to [facility] on 11/08/16. The patient was referred to emergency room on 08/30 after an unwitnessed fall. She was found on the ground with a scalp laceration. The patient was unable to provide any further history. Her initial workup showed a normal white cell count with mild anemia and thrombocytosis and her first troponin was 0.19. The patient was admitted for further evaluation. She had no complaints of chest pain, no new EKG changes, and she was observed on telemetry with significant arrhythmias. CT brain showed no evidence for traumatic brain injury or acute intracranial process. She had fluid levels in the maxillary sinuses compatible with potential sinusitis. CT of the cervical spine showed degenerative disc disease and osteoarthritis, but no acute osseous injury to the cervical spine. Initial chest x- ray showed stable right apical pleural thickening and stable chronic appearing interstitial changes. The patient had some complaints of right foot pain, but x-ray showed no acute bony findings only a heel spur. The patient spiked a fever of 101.5 and further workup was performed. A CT of the chest was negative for PE, but it showed left lower lobe consolidation with left pleural effusion, likely represents pneumonia. There is bronchiectasis in the right upper lobe. At that point, the impression was the patient's weakness and fall was likely associated with post influenza pneumonia. She was started on antibiotic, had resolution of her fever and improvement of her weakness. She did have some left - sided pleuritic back pain that has now resolved and her cough is still present , but less frequent than before. I believe the patient's troponin elevation is likely secondary to increased demand in the setting of infection. As she has no chest pain, no ischemic EKG changes, I believe further workup is not indicated at this time. She had a recent echo on her prior admission that showed no wall motion abnormalities. The patient's anemia workup revealed iron deficiency with an iron less than 15, TIBC of 195, ferritin was 88. Vitamin B12 and folate were normal. She was started on iron and vitamin C and, I believe, this should increased as outpatient with monitoring of her hemoglobin and of her thrombocytosis. The patient is medically stable for discharge back to [facility] today. PHYSICAL EXAMINATION: Vital Signs: Temperature 97.8, heart rate is 68, respiratory rate 16, oxygen saturation 92% on room air, blood pressure is 148/ 57. General: The patient is pleasantly confused elderly lady, lying on the bed , in no acute distress. CVS: Normal S1 and S2. Regular rate and rhythm. Chest: Breath sounds bilaterally decreased in the left base, but no other added sounds. Abdomen: Soft. Bowel sounds present. Extremities: No edema. Neuro: She is alert, awake, and oriented x1, to self only. Able to move all 4 extremities. DIET: Regular diet. ACTIVITY: As tolerated. DISPOSITION: To home. STATUS WHILE IN THE HOSPITAL: Inpatient. Please keep in mind, this is a summarized version of this patient's hospital stay. If you need more information, please feel free to call me at [phone] or please obtain the full medical records. TIME SPENT: Approximately 45 minutes was spent to complete this discharge. CC: Dr. Damián Khoury, [facility] * [id number]/[facility] #: [id number] JOANNA
[2016-11-17 12:03] VITALS: BP 149/53
== END 2016-11-17 12:12 | DRG 195 ==
LOC: ED 14:58 → MEDTELE 17:38 → MED 11-15 14:35
PROVIDERS: ADMIT Hospitalist; ATTEND Internal Medicine
DX: J18.8 Other pneumonia, unspecified organism (principal); J44.9 Chronic obstructive pulmonary disease, unspecified; F03.90 Unspecified dementia, unspecified severity, without behavioral disturbance, psychotic disturbance, mood disturbance, and anxiety; E87.6 Hypokalemia; D47.3 Essential (hemorrhagic) thrombocythemia; S01.01XA Laceration without foreign body of scalp, initial encounter; R74.8 Abnormal levels of other serum enzymes; D50.9 Iron deficiency anemia, unspecified; W18.30XA Fall on same level, unspecified, initial encounter; M19.90 Unspecified osteoarthritis, unspecified site; M51.36 Other intervertebral disc degeneration, lumbar region; Z66 Do not resuscitate; M79.671 Pain in right foot; Z79.899 Other long term (current) drug therapy; Y92.122 Bedroom in nursing home as the place of occurrence of the external cause; Z79.1 Long term (current) use of non-steroidal anti-inflammatories (NSAID); Z79.82 Long term (current) use of aspirin
CPT/HCPCS: 36415; 70450; 71010; 71275; 72125; 80048; 80053; 82550; 82607; 82728; 82746; 83540; 83550; 83605; 83735; 84484; 85025; 85060; 86140; 87040; 87641; 93005; 94760; 99406; A9270-GY; J1650; Q9967